=== PATIENT | female | born 1945 | race Caucasian/White ===

== ENCOUNTER 2017-12-02 10:09 | Outpatient (CLI) | payer MEDICARE, OTHER | END 2017-12-02 10:10 | disposition home or self-care (01) | LOC: BICMAMMO 10:09 | PROVIDERS: ATTEND Internal Medicine Geriatric Medicine | DX: Z08 Encounter for follow-up examination after completed treatment for malignant neoplasm (principal); L90.5 Scar conditions and fibrosis of skin; Z98.890 Other specified postprocedural states | CPT/HCPCS: 77066; G0279 ==

== ENCOUNTER 2018-12-06 11:20 | Outpatient (CLI) | payer MEDICARE, OTHER ==
--- NOTE | 2018-12-07 15:33 | MMO ---
Bilateral MAMMO Bilat Screen [facility]. CLINICAL HISTORY: Patient is 73 years old and is seen for screening. The patient has no family history of breast cancer. 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 The patient has a history of right Excisional Biopsy in November, - malignant, left Ultrasound Guided Core Biopsy in August, - malignant and left Lumpectomy in August, - invasive ductal carcinoma. VIEWS: The views performed were: bilateral craniocaudal with tomosynthesis; bilateral mediolateral oblique with tomosynthesis; and right exaggerated craniocaudal. FILMS COMPARED: The present examination has been compared to prior imaging studies performed at [facility] on 08/11/2002, 08/21/2003, 10/07/2004, 07/20/2006, 08/26/2007, 08/31/2008, 11/22/2014, 11/25/2015, 11/26/2016 and 12/02/2017. MAMMOGRAM FINDINGS: There are scattered fibroglandular densities. Finding 1: There are post-surgical scars seen in both breasts. Finding 2: Benign calcifications are noted bilaterally. No suspicious calcifications or masses are seen. IMPRESSION: ALL ABOVE FINDINGS ARE BENIGN. A ROUTINE FOLLOW-UP MAMMOGRAM IN 1 YEAR IS RECOMMENDED. THE RESULTS OF THIS EXAM WERE SENT TO THE PATIENT. ACR BI-RADS Category 2 - Benign finding MAMMOGRAPHY NOTE: 1. A negative mammogram report should not delay a biopsy if a dominant of clinically suspicious mass is present. 2. Approximately 10% to 15% of breast cancers are not detected by mammography. 3. Adenosis and dense breasts may obscure an underlying neoplasm.
== END 2018-12-06 11:21 | disposition home or self-care (01) ==
LOC: BICMAMMO 11:20
PROVIDERS: ATTEND Internal Medicine Hematology & Oncology
DX: Z12.31 Encounter for screening mammogram for malignant neoplasm of breast (principal); Z85.3 Personal history of malignant neoplasm of breast; Z90.11 Acquired absence of right breast and nipple; Z98.890 Other specified postprocedural states
CPT/HCPCS: 77063; 77067

== ENCOUNTER 2019-07-21 13:50 | Outpatient (CLI) | payer MEDICARE, OTHER ==
--- NOTE | 2019-07-21 14:09 | RAD ---
EXAM: 3 views of the left shoulder HISTORY: Shoulder pain after fall 3 days ago COMPARISON: None FINDINGS: There is no evidence of acute fracture or dislocation. No degenerative changes are present. 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 No soft tissue swelling is seen. The visualized thorax is unremarkable. IMPRESSION: No evidence of acute osseous abnormality.
== END 2019-07-21 13:51 | disposition home or self-care (01) ==
LOC: BICRAD 13:50
PROVIDERS: ATTEND Family Medicine
DX: M25.512 Pain in left shoulder (principal)

== ENCOUNTER 2020-04-12 13:41 | Outpatient (CLI) | payer MEDICARE ==
[~2020-04-12 13:41] MED LIST: Magnevist 469MG/ML 20 ML VIAL ONE
--- NOTE | 2020-04-12 16:19 | MRI ---
BRAIN MRI WITH AND WITHOUT CONTRAST: 04/12/20 COMPARISON: None. HISTORY: Tremors. TECHNIQUE: Multiplanar and multisequence MR imaging of the brain is obtained without contrast. FINDINGS: The diffusion weighted imaging demonstrates no evidence for acute infarction. The axial gradient echo imaging demonstrates no evidence for intracranial hemorrhage. There is polypo id mucosal thickening within the maxillary sinus on the left. Arterial flow voids at the axial level of the skull base appear unremarkable on the T2 weighted imagi ng. Multiple subcentimeter foci of increased T2 and FLAIR signal noted within the subcortical deep and pe riventricular white matter of bilateral frontal lobes suggesting small vessel disease. There is diffuse cerebral volume loss with associated prominence of the CSF containing spaces. The po stcontrast imaging demonstrates no abnormal enhancement within the brain parenchyma. IMPRESSION: Chronic findings as detailed above. No acute findings are noted. POS: H
== END 2020-04-12 13:42 | disposition home or self-care (01) ==
LOC: BICMRI 13:41
PROVIDERS: ATTEND Psychiatry & Neurology Neurology
DX: G25.0 Essential tremor (principal); R26.81 Unsteadiness on feet
CPT/HCPCS: 70553; A9579

== ENCOUNTER 2021-06-10 09:58 | Outpatient (CLI) | payer MEDICARE | END 2021-06-10 09:59 | disposition home or self-care (01) | LOC: BICULT 09:58 | PROVIDERS: ATTEND Family Medicine | DX: R10.9 Unspecified abdominal pain (principal); K83.8 Other specified diseases of biliary tract | CPT/HCPCS: 93975 ==

== ENCOUNTER 2021-07-09 13:15 | Outpatient (CLI) | payer MEDICARE | END 2021-07-09 13:16 | disposition home or self-care (01) | LOC: BICMAMMO 13:15 | PROVIDERS: ATTEND Family Medicine | DX: Z12.31 Encounter for screening mammogram for malignant neoplasm of breast (principal); Z90.10 Acquired absence of unspecified breast and nipple; Z85.3 Personal history of malignant neoplasm of breast | CPT/HCPCS: 77063; 77067 ==

== ENCOUNTER 2022-03-16 15:13 | Emergency (ER) | payer MEDICARE | END 2022-03-16 17:27 | disposition home or self-care (01) | LOC: ERS 15:13 | DX: S70.01XA Contusion of right hip, initial encounter (principal); S00.83XA Contusion of other part of head, initial encounter; E11.9 Type 2 diabetes mellitus without complications; I10 Essential (primary) hypertension; E78.2 Mixed hyperlipidemia; Z79.899 Other long term (current) drug therapy; Z79.84 Long term (current) use of oral hypoglycemic drugs; Z79.82 Long term (current) use of aspirin; W18.30XA Fall on same level, unspecified, initial encounter | CPT/HCPCS: 70450; 70486; 72170 ==

== ENCOUNTER 2022-05-01 08:34 | Outpatient (CLI) | payer MEDICARE | END 2022-05-01 08:35 | disposition home or self-care (01) | LOC: ULT 08:34 | PROVIDERS: ATTEND Internal Medicine Gastroenterology | DX: R10.13 Epigastric pain (principal); R19.7 Diarrhea, unspecified; R11.0 Nausea; R07.9 Chest pain, unspecified; K58.0 Irritable bowel syndrome with diarrhea; K58.1 Irritable bowel syndrome with constipation; K76.0 Fatty (change of) liver, not elsewhere classified; K76.89 Other specified diseases of liver; N28.1 Cyst of kidney, acquired; K82.4 Cholesterolosis of gallbladder; D73.89 Other diseases of spleen; Z86.010 Personal history of colon polyps | CPT/HCPCS: 76700 ==

== ENCOUNTER 2022-06-12 10:28 | Outpatient (CLI) | payer MEDICARE | END 2022-06-12 10:29 | disposition home or self-care (01) | LOC: BICRAD 10:28 | PROVIDERS: ATTEND Family Medicine | DX: S93.412A Sprain of calcaneofibular ligament of left ankle, initial encounter (principal); M54.50 Low back pain, unspecified; M47.816 Spondylosis without myelopathy or radiculopathy, lumbar region; M43.16 Spondylolisthesis, lumbar region; M81.0 Age-related osteoporosis without current pathological fracture; I70.202 Unspecified atherosclerosis of native arteries of extremities, left leg; M25.472 Effusion, left ankle; M16.0 Bilateral primary osteoarthritis of hip | CPT/HCPCS: 72100 ==

== ENCOUNTER 2022-07-10 14:23 | Outpatient (CLI) | payer MEDICARE | END 2022-07-10 14:24 | disposition home or self-care (01) | LOC: BICMAMMO 14:23 | PROVIDERS: ATTEND Internal Medicine Hematology & Oncology | DX: Z12.31 Encounter for screening mammogram for malignant neoplasm of breast (principal); Z90.11 Acquired absence of right breast and nipple; Z85.3 Personal history of malignant neoplasm of breast; Z98.890 Other specified postprocedural states | CPT/HCPCS: 77063; 77067 ==

== ENCOUNTER 2022-08-04 06:46 | Inpatient (IN) | payer MEDICARE ==
[2022-08-04 08:13] LABS: #Eosinphils 0.1 thou/uL (0.0-0.7); #Monocytes 0.7 thou/uL (0.11-0.59); #Neutrophils 4.6 thou/uL (1.40-6.50); %Basophils 0.2 % (0.0-1.0); %Lymphocytes 26.9 % (21.0-51.0); %Monocytes 8.9 % (0.0-10.0); Hemoglobin 8.4 g/dL (12.0-16.0); Mean Corpuscular HGB CONC 31.9 g/dL (32.0-36.0); Mean Corpuscular Hemoglobin 25.5 pg (27.0-31.0); Mean Platelet Volume 8.5 fL (7.4-10.4); Platelet Count 233 thou/uL (130-400); RBC Distribution Width 17.7 % (11.5-14.5); Red Blood Cell (RBC) Count 3.31 mill/uL (4.20-5.40); White Blood Cell (WBC) Count 7.4 thou/uL (4.8-10.8)
[2022-08-04 08:21] LABS: Prothrombin Time 13.8 sec (12.0-14.7)
[2022-08-04 08:22] LABS: PTT 29.2 sec (22.9-36.1)
[2022-08-04 08:36] LABS: ALT (SGPT) 14 U/L (8-55); AST (SGOT) 16 U/L (5-34); Albumin 3.8 g/dL (3.4-4.8); Alkaline Phosphatase 121 U/L (40-110); Anion Gap 11 mmol/L (10-20); BUN (Urea Nitrogen) 34 mg/dL (9.8-20.1); Bilirubin, Total 0.3 mg/dL (0.2-1.2); Calc. Creatinine Clearance 0 mL/min (70-130); Calcium 9.2 mg/dL (7.8-10.44); Carbon Dioxide 26 mmol/L (23-31); Chloride 102 mmol/L (98-107); Estimated GFR 39; Globulin 2.9 g/dL (2.4-3.5); Glucose 326 mg/dL (83-110); Potassium 4.3 mmol/L (3.5-5.1); Protein, Total 6.7 g/dL (5.8-8.1); Sodium 135 mmol/L (136-145)
[2022-08-04] MEDS ORDERED: hydrALAZINE 25 MG TAB ONE (08:43)
[2022-08-04] MEDS ORDERED: Acetaminophen 500 MG TAB ONE (08:51)
[2022-08-04] MEDS ORDERED: Hydrochlorothiazide 25 MG TAB PO SCH (09:00)
[2022-08-04] MEDS ORDERED: Losartan 25 MG TAB PO SCH ×2 (09:00→09:30)
[2022-08-04 10:08] LABS: Reticulocyte Count 2.3 % (0.5-1.5)
[2022-08-04 10:25] LABS: Iron 25 ug/dL (50-170); Iron Binding Capacity, Total 374 mcg/dL (265-497)
[2022-08-04 11:31] LABS: Troponin I Less than 0.010 ng/mL (< 0.028)
[2022-08-04] MEDS ORDERED: Dextrose 50% Abboject 50 ML SYRINGE SLOW IVP PRN (12:52)
[2022-08-04] MEDS ORDERED: Ondansetron ODT 4 MG TAB PO PRN (12:52)
[2022-08-04] MEDS ORDERED: Acetaminophen 325 MG TAB PO PRN (12:52)
[2022-08-04] MEDS ORDERED: Dextrose 5% in Water 1,000 ML IV PRN (12:52)
[2022-08-04] MEDS ORDERED: Iron Sucrose Complex 200 MG in Sodium Chloride 0.9% 100 ML IVPB SCH (12:56)
[2022-08-04] MEDS ORDERED: rOPINIRole HCl 0.5 MG TAB PO PRN (12:57)
[2022-08-04] MEDS ORDERED: Sodium Chloride 0.9% 500 ML IV SCH (13:00)
[2022-08-04] MEDS ORDERED: Electrolyte Replacement Protocol 1 EACH FS SCH (13:00)
[2022-08-04] MEDS ORDERED: Sertraline 100 MG TAB PO SCH (13:00)
[2022-08-04 15:23] LABS: Troponin I Less than 0.010 ng/mL (< 0.028)
[2022-08-04] MEDS ORDERED: Metoprolol Tartrate 25 MG TAB PO SCH (15:30)
[2022-08-04] MEDS ORDERED: Cyclobenzaprine 10 MG TAB PO PRN (15:46)
[2022-08-04] MEDS: Iron, Sodium Ferric Gluconate 250 MG in Sodium Chloride 0.9% 250 ML 250 ML IVPB SCH (15:54)
[2022-08-04] MEDS: HumaLOG 300 UNITS/3 ML VIAL SC PRN (18:33)
[2022-08-04] MEDS: hydrALAZINE 25 MG TAB PO SCH (18:38)
[2022-08-04] MEDS: Metoprolol Tartrate 25 MG TAB PO SCH (18:39)
[2022-08-04] MEDS: ALPRAZolam 0.25 MG TAB PO PRN (23:31)
[2022-08-05 03:07] VITALS: BMI 35.6
[2022-08-05 06:11] LABS: #Basophils 0.1 thou/uL (0.0-0.2); #Eosinphils 0.1 thou/uL (0.0-0.7); #Lymphocytes 2.4 thou/uL (1.20-3.40); #Monocytes 0.8 thou/uL (0.11-0.59); #Neutrophils 5.3 thou/uL (1.40-6.50); %Basophils 0.6 % (0.0-1.0); %Eosinophils 1.1 % (0.0-10.0); %Lymphocytes 27.6 % (21.0-51.0); %Monocytes 9.2 % (0.0-10.0); %Neutrophils 61.4 % (42.0-75.0); Hemoglobin 9.1 g/dL (12.0-16.0); Mean Corpuscular HGB CONC 31.3 g/dL (32.0-36.0); Mean Corpuscular Hemoglobin 25.1 pg (27.0-31.0); Mean Corpuscular Volume 80.2 fl (78.0-98.0); Mean Platelet Volume 8.5 fL (7.4-10.4); Platelet Count 265 10x3/uL (130-400); RBC Distribution Width 17.8 % (11.5-14.5); White Blood Cell (WBC) Count 8.6 10x3/uL (4.8-10.8)
[2022-08-05 06:23] LABS: Anion Gap 11 mmol/L (10-20); BUN (Urea Nitrogen) 27 mg/dL (9.8-20.1); Calc. Creatinine Clearance 51 mL/min (70-130); Calcium 9.4 mg/dL (7.8-10.44); Carbon Dioxide 28 mmol/L (23-31); Chloride 101 mmol/L (98-107); Estimated GFR 43; Glucose 252 mg/dL (83-110); Magnesium 1.8 mg/dL (1.6-2.6); Potassium 4.1 mmol/L (3.5-5.1); Sodium 136 mmol/L (136-145)
[2022-08-05] MEDS ORDERED: Magnesium 2 GM/50 ML(in water) 2 GM in Premix Bag 1 BAG IVPB SCH (08:00)
[2022-08-05] MEDS: hydrALAZINE 25 MG TAB PO SCH ×2 (08:42→20:04)
[2022-08-05] MEDS: Losartan/Hydrochlorothiazide 100 mg/25 mg Tablet PO SCH (08:43)
[2022-08-05] MEDS: Sertraline 100 MG TAB PO SCH (08:44)
[2022-08-05] MEDS: Metoprolol Tartrate 25 MG TAB PO SCH ×2 (08:44→20:05)
[2022-08-05] MEDS ORDERED: Propranolol HCl LA 60 MG CAP PO SCH (09:00)
[2022-08-05] MEDS ORDERED: Aspirin 81 mg Enteric Coated Tablet PO SCH (09:00)
[2022-08-05] MEDS ORDERED: Sertraline 100 MG TAB PO SCH (09:00)
[2022-08-05 09:53] LABS: Phosphorus 3.6 mg/dL (2.3-4.7)
[2022-08-05 10:01] LABS: Actual Bicarbonate (HCO3v) 24 mEq/L (22-28); Base Excess 0.5 mEq/L (-2.0 to +3.0); Calcium, Ionized (venous) 1.11 mmol/L (1.16-1.32); Chloride (VBG) 98 mmol/L (98-106); Hemoglobin (Hb) 9.8 g/dL (11.7-16.1); Potassium (VBG) 4.32 mmol/L (3.70-5.30); Sodium 133.2 mmol/L (133-146); pH (venous) 7.46 (7.32-7.43)
[2022-08-05] MEDS: HumaLOG 300 UNITS/3 ML VIAL SC PRN ×3 (11:33→20:09)
[2022-08-05] MEDS: Iron, Sodium Ferric Gluconate 250 MG in Sodium Chloride 0.9% 250 ML 250 ML IVPB SCH (13:55)
[2022-08-05] MEDS: ALPRAZolam 0.25 MG TAB PO PRN (23:33)
[2022-08-06] MEDS ORDERED: Calcium Carbonate 500 MG ChewTAB PO PRN (00:24)
[2022-08-06 05:00] LABS: #Eosinphils 0.1 thou/uL (0.0-0.7); #Lymphocytes 2.3 thou/uL (1.20-3.40); #Monocytes 0.9 thou/uL (0.11-0.59); #Neutrophils 5.5 thou/uL (1.40-6.50); %Eosinophils 1.2 % (0.0-10.0); %Lymphocytes 25.8 % (21.0-51.0); %Monocytes 10.6 % (0.0-10.0); %Neutrophils 62.4 % (42.0-75.0); Hemoglobin 9.2 g/dL (12.0-16.0); Mean Corpuscular HGB CONC 32.2 g/dL (32.0-36.0); Mean Corpuscular Hemoglobin 25.6 pg (27.0-31.0); Mean Corpuscular Volume 79.6 fl (78.0-98.0); Mean Platelet Volume 8.8 fL (7.4-10.4); Platelet Count 258 10x3/uL (130-400); White Blood Cell (WBC) Count 8.8 10x3/uL (4.8-10.8)
[2022-08-06 05:15] LABS: ALT (SGPT) 13 U/L (8-55); AST (SGOT) 13 U/L (5-34); Albumin 3.9 g/dL (3.4-4.8); Alkaline Phosphatase 127 U/L (40-110); Anion Gap 15 mmol/L (10-20); BUN (Urea Nitrogen) 31 mg/dL (9.8-20.1); Bilirubin, Total 0.4 mg/dL (0.2-1.2); Calc. Creatinine Clearance 45 mL/min (70-130); Calcium 9.7 mg/dL (7.8-10.44); Carbon Dioxide 25 mmol/L (23-31); Chloride 97 mmol/L (98-107); Estimated GFR 38; Globulin 3.1 g/dL (2.4-3.5); Glucose 314 mg/dL (83-110); Magnesium 2.1 mg/dL (1.6-2.6); Sodium 133 mmol/L (136-145)
[2022-08-06 05:18] LABS: Iron 281 ug/dL (50-170); Iron Binding Capacity, Total 355 mcg/dL (265-497); Phosphorus 4.3 mg/dL (2.3-4.7)
[2022-08-06] MEDS: hydrALAZINE 25 MG TAB PO SCH ×4 (05:32→21:21)
[2022-08-06] MEDS: Metoprolol Tartrate 25 MG TAB PO SCH ×2 (05:32→21:20)
[2022-08-06] MEDS: HumaLOG 300 UNITS/3 ML VIAL SC PRN ×4 (05:33→21:21)
[2022-08-06] MEDS: Sertraline 100 MG TAB PO SCH (08:55)
[2022-08-06] MEDS: Losartan/Hydrochlorothiazide 100 mg/25 mg Tablet PO SCH (08:55)
[2022-08-06] MEDS ORDERED: NIFEdipine XL 30 MG TAB PO SCH (09:00)
[2022-08-06 10:40] LABS: Bacteria/HPF None Seen HPF (None Seen); Bilirubin Negative (Negative); Blood, Urine Negative (Negative); Clarity Clear (Clear); Glucose, Urine (Dipstick) 300 mg/dL (Negative); Ketone, Urine Negative (Negative); Leukocyte Negative Leu/uL (Negative); Nitrite Negative (Negative); Protein, Urine (Dipstick) 30 mg/dL (Neg-Trace); RBC/HPF 0-3 HPF (0-3); Specific Gravity, Urine 1.013 (1.002-1.036); Squamous Epithelial 0-3 HPF (0-3); Urobilinogen Normal mg/dL (Less than 2); WBC/HPF 0-3 HPF (0-3); pH, Urine 5.5 (5.0-9.0)
[2022-08-06 10:41] LABS: Urine Culture Reflex No No
[2022-08-06] MEDS ORDERED: Epoetin (ESRD) 10,000 UNITS/ML VIAL SC SCH (11:00)
[2022-08-06 11:02] LABS: Creatinine, Urine 43.96 mg/dL (47-110)
[2022-08-06] MEDS ORDERED: Propranolol HCl LA 60 MG CAP PO SCH (13:00)
[2022-08-06] MEDS: rOPINIRole HCl 0.5 MG TAB PO SCH (21:20)
[2022-08-06] MEDS: NIFEdipine XL 30 MG TAB PO SCH (21:21)
[2022-08-06] MEDS: traZODone HCl 50 MG TAB PO PRN (23:59)
[2022-08-07] MEDS: HumaLOG 300 UNITS/3 ML VIAL SC PRN ×3 (05:45→16:30)
[2022-08-07] MEDS: rOPINIRole HCl 0.5 MG TAB PO SCH ×2 (10:14→21:25)
[2022-08-07] MEDS: hydrALAZINE 25 MG TAB PO SCH ×3 (10:15→21:25)
[2022-08-07] MEDS: Sertraline 100 MG TAB PO SCH (10:15)
[2022-08-07] MEDS: Metoprolol Tartrate 25 MG TAB PO SCH ×2 (10:15→21:25)
[2022-08-07 10:16] LABS: Anion Gap 12 mmol/L (10-20); BUN (Urea Nitrogen) 36 mg/dL (9.8-20.1); Calc. Creatinine Clearance 42 mL/min (70-130); Carbon Dioxide 25 mmol/L (23-31); Chloride 97 mmol/L (98-107); Estimated GFR 35; Potassium 4.3 mmol/L (3.5-5.1); Sodium 130 mmol/L (136-145)
[2022-08-07] MEDS: NIFEdipine XL 30 MG TAB PO SCH ×2 (10:16→21:25)
[2022-08-07 10:32] LABS: Glucose 401 mg/dL (83-110)
[2022-08-07] MEDS: glipiZIDE 5 MG TAB PO SCH (10:44)
[2022-08-07] MEDS: Propranolol HCl LA 60 MG CAP PO SCH (10:45)
[2022-08-07] MEDS ORDERED: Dextrose 5% in Water 1,000 ML IV PRN (15:31)
[2022-08-07] MEDS ORDERED: Dextrose 50% Abboject 50 ML SYRINGE SLOW IVP PRN (15:31)
[2022-08-07] MEDS ORDERED: metFORMIN 500 MG TAB PO SCH (17:00)
[2022-08-07] MEDS: traZODone HCl 50 MG TAB PO PRN (21:25)
[2022-08-07] MEDS ORDERED: HumaLOG 300 UNITS/3 ML VIAL SC PRN (21:49)
[2022-08-07] MEDS ORDERED: Sodium Chloride 0.9% 1,000 ML IV SCH (22:15)
[2022-08-08 05:27] LABS: Anion Gap 12 mmol/L (10-20); BUN (Urea Nitrogen) 37 mg/dL (9.8-20.1); Calc. Creatinine Clearance 49 mL/min (70-130); Calcium 9.3 mg/dL (7.8-10.44); Carbon Dioxide 24 mmol/L (23-31); Chloride 100 mmol/L (98-107); Estimated GFR 42; Glucose 264 mg/dL (83-110); Potassium 4.1 mmol/L (3.5-5.1); Sodium 132 mmol/L (136-145)
[2022-08-08] MEDS: HumaLOG 300 UNITS/3 ML VIAL SC PRN ×2 (06:43→11:34)
[2022-08-08] MEDS: glipiZIDE 5 MG TAB PO SCH (09:48)
[2022-08-08] MEDS: NIFEdipine XL 30 MG TAB PO SCH (09:49)
[2022-08-08] MEDS: rOPINIRole HCl 0.5 MG TAB PO SCH (09:49)
[2022-08-08] MEDS: hydrALAZINE 25 MG TAB PO SCH (09:49)
[2022-08-08] MEDS: Sertraline 100 MG TAB PO SCH (09:49)
[2022-08-08] MEDS: Propranolol HCl LA 60 MG CAP PO SCH (09:49)
[2022-08-08] MEDS: Metoprolol Tartrate 25 MG TAB PO SCH (09:49)
[2022-08-08 11:44] VITALS: BP 162/72; TEMP 98.7
== END 2022-08-08 13:10 | DRG 683 ==
LOC: ERS 06:46 → ERHOLD 10:06 → 2SW 14:05 → OBSVTOIN 08-05 18:04
PROVIDERS: ADMIT Hospitalist; ATTEND Hospitalist
DX: N17.9 Acute kidney failure, unspecified (principal); E87.1 Hypo-osmolality and hyponatremia; I16.0 Hypertensive urgency; Z20.822 Contact with and (suspected) exposure to COVID-19; E11.65 Type 2 diabetes mellitus with hyperglycemia; R79.89 Other specified abnormal findings of blood chemistry; E78.5 Hyperlipidemia, unspecified; F41.9 Anxiety disorder, unspecified; F32.A Depression, unspecified; G25.81 Restless legs syndrome; G47.00 Insomnia, unspecified; N18.30 Chronic kidney disease, stage 3 unspecified; E11.22 Type 2 diabetes mellitus with diabetic chronic kidney disease; I12.9 Hypertensive chronic kidney disease with stage 1 through stage 4 chronic kidney disease, or unspecified chronic kidney disease; D63.1 Anemia in chronic kidney disease; E88.09 Other disorders of plasma-protein metabolism, not elsewhere classified; I13.10 Hypertensive heart and chronic kidney disease without heart failure, with stage 1 through stage 4 chronic kidney disease, or unspecified chronic kidney disease; I49.1 Atrial premature depolarization; Z90.89 Acquired absence of other organs; Z86.010 Personal history of colon polyps; Z79.899 Other long term (current) drug therapy; Z79.84 Long term (current) use of oral hypoglycemic drugs
CPT/HCPCS: 36415; 36416; 70450; 71045; 72125; 76770; 80048; 80053; 81001; 82274; 82306; 82533; 82570; 82728; 82805; 83540; 83550; 83735; 83970; 84100; 84156; 84443; 84484; 85025; 85046; 85610; 85730; 93005; 93306; 93976; 96374; 96375; 96376; G0378; J1815; J2916; J3475; J7050; Q4081; U0003; U0005

== ENCOUNTER 2023-03-05 13:55 | Inpatient (IN) | payer MEDICARE, OTHER ==
[2023-03-05 15:14] LABS: Base Excess 2.4 mEq/L (-2.0 to +3.0); Calcium, Ionized (venous) 0.89 mmol/L (1.16-1.32); Chloride (VBG) 104 mmol/L (98-106); Hematocrit-VBG 31 % (36.0-47.0); Hemoglobin (Hb) 10.6 g/dL (11.7-16.1); Potassium (VBG) 3.45 mmol/L (3.70-5.30); Sodium 134.3 mmol/L (133-146); pH (venous) 7.603 (7.32-7.43)
[2023-03-05 15:23] LABS: #Monocytes 0.7 thou/uL (0.11-0.59); #Neutrophils 4.4 thou/uL (1.40-6.50); %Basophils 0.4 % (0.0-1.0); %Eosinophils 0.6 % (0.0-10.0); %Lymphocytes 22.2 % (21.0-51.0); %Monocytes 10.9 % (0.0-10.0); %Neutrophils 65.3 % (42.0-75.0); Hemoglobin 9.3 g/dL (12.0-16.0); Mean Corpuscular HGB CONC 31.6 g/dL (32.0-36.0); Mean Corpuscular Hemoglobin 26.3 pg (27.0-31.0); Mean Corpuscular Volume 83.1 fl (78.0-98.0); Mean Platelet Volume 9.8 fL (7.4-10.4); Platelet Count 244 10x3/uL (130-400); Red Blood Cell (RBC) Count 3.54 mill/uL (4.20-5.40); White Blood Cell (WBC) Count 6.8 10x3/uL (4.8-10.8)
[2023-03-05 15:41] LABS: ALT (SGPT) 12 U/L (8-55); AST (SGOT) 11 U/L (5-34); Albumin 3.2 g/dL (3.4-4.8); Alkaline Phosphatase 118 U/L (40-110); Anion Gap 13 mmol/L (10-20); BUN (Urea Nitrogen) 29 mg/dL (9.8-20.1); Bilirubin, Total 0.2 mg/dL (0.2-1.2); Calc. Creatinine Clearance 0 mL/min (70-130); Calcium 8.6 mg/dL (7.8-10.44); Carbon Dioxide 26 mmol/L (23-31); Chloride 103 mmol/L (98-107); Estimated GFR 42; Globulin 2.9 g/dL (2.4-3.5); Glucose 340 mg/dL (83-110); Potassium 3.5 mmol/L (3.5-5.1); Protein, Total 6.1 g/dL (5.8-8.1); Sodium 138 mmol/L (136-145)
[2023-03-05 16:56] LABS: Bacteria/HPF None Seen HPF (None Seen); Bilirubin Negative (Negative); Blood, Urine Negative (Negative); CAUTI Indications for Culture Dysuria,urgency,freq; Clarity Clear (Clear); Glucose, Urine (Dipstick) Greater than 1000 mg/dL (Negative); Ketone, Urine Negative (Negative); Leukocyte Negative Leu/uL (Negative); Nitrite Negative (Negative); Protein, Urine (Dipstick) 300 mg/dL (Neg-Trace); RBC/HPF None Seen HPF (0-3); Specific Gravity, Urine 1.017 (1.002-1.036); Urobilinogen Normal mg/dL (Less than 2); WBC/HPF 0-3 HPF (0-3); pH, Urine 6.5 (5.0-9.0)
[2023-03-05 16:59] LABS: Urine Culture Reflex No No
[2023-03-05 17:06] LABS: CKMB 2.3 ng/mL (0-6.6)
[2023-03-05] MEDS ORDERED: Aspirin 325 MG TAB ONE (17:29)
[2023-03-05] MEDS ORDERED: hydrALAZINE 25 MG TAB ONE (18:02)
[2023-03-05] MEDS ORDERED: Nitroglycerin 0.4 MG TAB (25 Tab Bottle) SL PRN (18:16)
[2023-03-05] MEDS ORDERED: Senokot S 8.6-50 MG TAB PO PRN (18:16)
[2023-03-05] MEDS ORDERED: Ondansetron ODT 4 MG TAB PO PRN (18:16)
[2023-03-05] MEDS ORDERED: Ondansetron PF 4 MG/2 ML Vial IVP PRN (18:16)
[2023-03-05] MEDS ORDERED: Bisacodyl 5 MG TAB PO PRN (18:16)
[2023-03-05] MEDS ORDERED: Acetaminophen 325 MG TAB PO PRN (18:16)
[2023-03-05] MEDS ORDERED: Dextrose 5% in Water 1,000 ML IV PRN (18:22)
[2023-03-05] MEDS ORDERED: Glucagon 1 MG/ML KIT IM PRN (18:22)
[2023-03-05] MEDS ORDERED: Dextrose 50% Abboject 50 ML SYRINGE SLOW IVP PRN (18:22)
[2023-03-05] MEDS ORDERED: Sodium Chloride 0.9% 1,000 ML IV SCH (18:30)
[2023-03-05] MEDS ORDERED: traMADol HCl 50 MG TAB PO SCH (19:30)
[2023-03-05 19:59] VITALS: BMI 35.4
[2023-03-05 20:14] LABS: Hemoglobin A1c 10.1 % (4.0-6.0)
[2023-03-05 20:33] LABS: Troponin I Less than 0.010 ng/mL (< 0.028)
[2023-03-05] MEDS: Heparin 5,000 UNITS/ML VIAL SC SCH (21:00)
[2023-03-05] MEDS ORDERED: Metoprolol Tartrate 25 MG TAB PO SCH (21:00)
[2023-03-05] MEDS: NIFEdipine XL 30 MG TAB PO SCH (21:00)
[2023-03-05] MEDS: hydrALAZINE 25 MG TAB PO SCH (21:00)
[2023-03-05] MEDS: HumaLOG 300 UNITS/3 ML VIAL SC PRN (21:13)
[2023-03-06 00:33] LABS: Troponin I Less than 0.010 ng/mL (< 0.028)
[2023-03-06] MEDS: traZODone HCl 50 MG TAB PO PRN ×2 (03:28→20:52)
[2023-03-06 05:13] LABS: #Eosinphils 0.1 thou/uL (0.0-0.7); #Monocytes 0.8 thou/uL (0.11-0.59); #Neutrophils 3.4 thou/uL (1.40-6.50); %Basophils 0.3 % (0.0-1.0); %Eosinophils 1.7 % (0.0-10.0); %Lymphocytes 28.3 % (21.0-51.0); %Monocytes 12.7 % (0.0-10.0); %Neutrophils 56.5 % (42.0-75.0); Hemoglobin 8.6 g/dL (12.0-16.0); Mean Corpuscular HGB CONC 30.8 g/dL (32.0-36.0); Mean Corpuscular Hemoglobin 25.8 pg (27.0-31.0); Mean Corpuscular Volume 83.8 fl (78.0-98.0); Mean Platelet Volume 10.1 fL (7.4-10.4); Platelet Count 207 10x3/uL (130-400); RBC Distribution Width 16.9 % (11.5-14.5); Red Blood Cell (RBC) Count 3.33 mill/uL (4.20-5.40)
[2023-03-06 05:38] LABS: Anion Gap 9 mmol/L (10-20); BUN (Urea Nitrogen) 22 mg/dL (9.8-20.1); Calc. Creatinine Clearance 65 mL/min (70-130); Calcium 8.2 mg/dL (7.8-10.44); Carbon Dioxide 26 mmol/L (23-31); Cardiac Risk 5.3 (Less than 4.5); Chloride 110 mmol/L (98-107); Cholesterol 174 mg/dl (< 200 Desired); Estimated GFR 58; Glucose 217 mg/dL (83-110); HDL Cholesterol 33 mg/dL (>60 Neg Risk); LDL Cholesterol, Calculated 88 mg/dL; Potassium 3.1 mmol/L (3.5-5.1); Sodium 142 mmol/L (136-145); Triglycerides 266 mg/dL (Less than 150)
[2023-03-06] MEDS: HumaLOG 300 UNITS/3 ML VIAL SC PRN ×3 (06:09→20:53)
[2023-03-06] MEDS: Aspirin Chewable 81 MG TAB PO SCH (08:39)
[2023-03-06] MEDS: NIFEdipine XL 30 MG TAB PO SCH ×2 (08:39→20:52)
[2023-03-06] MEDS: Sertraline 100 MG TAB PO SCH (08:43)
[2023-03-06] MEDS: hydrALAZINE 25 MG TAB PO SCH ×2 (08:43→20:52)
[2023-03-06] MEDS: Heparin 5,000 UNITS/ML VIAL SC SCH ×3 (08:44→20:53)
[2023-03-06] MEDS ORDERED: ADENOSINE 60 MG/20 ML SDV ONE (13:25)
[2023-03-06] MEDS ORDERED: Propranolol HCl LA 60 MG CAP PO SCH (23:45)
[2023-03-07] MEDS: HumaLOG 300 UNITS/3 ML VIAL SC PRN ×3 (05:58→21:27)
[2023-03-07] MEDS ORDERED: Insulin Glargine 30 UNITS/0.3 ML VIAL SC SCH (09:00)
[2023-03-07 09:07] LABS: Anion Gap 10 mmol/L (10-20); BUN (Urea Nitrogen) 17 mg/dL (9.8-20.1); Calc. Creatinine Clearance 60 mL/min (70-130); Calcium 8.5 mg/dL (7.8-10.44); Carbon Dioxide 25 mmol/L (23-31); Chloride 104 mmol/L (98-107); Estimated GFR 53; Glucose 267 mg/dL (83-110); Potassium 3.2 mmol/L (3.5-5.1); Sodium 136 mmol/L (136-145)
[2023-03-07] MEDS: Aspirin Chewable 81 MG TAB PO SCH (09:49)
[2023-03-07] MEDS: Heparin 5,000 UNITS/ML VIAL SC SCH ×3 (09:49→20:30)
[2023-03-07] MEDS: hydrALAZINE 25 MG TAB PO SCH ×2 (09:50→20:29)
[2023-03-07] MEDS: NIFEdipine XL 30 MG TAB PO SCH ×2 (09:50→20:30)
[2023-03-07] MEDS: Sertraline 100 MG TAB PO SCH (09:50)
[2023-03-07] MEDS ORDERED: Potassium Chloride 20 MEQ TAB PO SCH (16:30)
[2023-03-07] MEDS: HumaLOG 300 UNITS/3 ML VIAL SC SCH (17:35)
[2023-03-07] MEDS ORDERED: Losartan 25 MG TAB PO SCH (18:00)
[2023-03-07] MEDS: Atorvastatin Calcium 40 MG TAB PO SCH (20:29)
[2023-03-08] MEDS: ALPRAZolam 0.25 MG TAB PO PRN (01:56)
[2023-03-08 05:07] LABS: #Eosinphils 0.2 thou/uL (0.0-0.7); #Monocytes 0.8 thou/uL (0.11-0.59); #Neutrophils 3.7 thou/uL (1.40-6.50); %Basophils 0.5 % (0.0-1.0); %Eosinophils 2.3 % (0.0-10.0); %Lymphocytes 34.6 % (21.0-51.0); %Monocytes 10.7 % (0.0-10.0); %Neutrophils 51.1 % (42.0-75.0); Hemoglobin 9.3 g/dL (12.0-16.0); Mean Corpuscular HGB CONC 31.8 g/dL (32.0-36.0); Mean Corpuscular Hemoglobin 25.5 pg (27.0-31.0); Mean Corpuscular Volume 80.2 fl (78.0-98.0); Mean Platelet Volume 9.8 fL (7.4-10.4); Platelet Count 236 10x3/uL (130-400); RBC Distribution Width 16.6 % (11.5-14.5); Red Blood Cell (RBC) Count 3.64 mill/uL (4.20-5.40); White Blood Cell (WBC) Count 7.3 10x3/uL (4.8-10.8)
[2023-03-08 05:31] LABS: Anion Gap 11 mmol/L (10-20); BUN (Urea Nitrogen) 19 mg/dL (9.8-20.1); Calc. Creatinine Clearance 57 mL/min (70-130); Calcium 8.8 mg/dL (7.8-10.44); Carbon Dioxide 21 mmol/L (23-31); Chloride 108 mmol/L (98-107); Estimated GFR 50; Glucose 283 mg/dL (83-110); Potassium 3.7 mmol/L (3.5-5.1); Sodium 136 mmol/L (136-145)
[2023-03-08] MEDS: HumaLOG 300 UNITS/3 ML VIAL SC SCH ×3 (07:56→16:44)
[2023-03-08] MEDS: Aspirin Chewable 81 MG TAB PO SCH (09:21)
[2023-03-08] MEDS: Sertraline 100 MG TAB PO SCH (09:22)
[2023-03-08] MEDS: NIFEdipine XL 30 MG TAB PO SCH ×2 (09:22→20:42)
[2023-03-08] MEDS: hydrALAZINE 25 MG TAB PO SCH ×2 (09:22→20:42)
[2023-03-08] MEDS: Losartan 25 MG TAB PO SCH (09:22)
[2023-03-08] MEDS: Heparin 5,000 UNITS/ML VIAL SC SCH ×3 (09:23→20:42)
[2023-03-08] MEDS: HumaLOG 300 UNITS/3 ML VIAL SC PRN ×2 (18:01→22:18)
[2023-03-08] MEDS: Atorvastatin Calcium 40 MG TAB PO SCH (20:42)
[2023-03-09] MEDS: traMADol HCl 50 MG TAB PO PRN (01:05)
[2023-03-09 05:27] LABS: #Eosinphils 0.1 thou/uL (0.0-0.7); #Monocytes 0.9 thou/uL (0.11-0.59); #Neutrophils 5.9 thou/uL (1.40-6.50); %Basophils 0.5 % (0.0-1.0); %Lymphocytes 19.3 % (21.0-51.0); %Monocytes 9.9 % (0.0-10.0); %Neutrophils 68.1 % (42.0-75.0); Hemoglobin 8.6 g/dL (12.0-16.0); Mean Corpuscular Hemoglobin 25.7 pg (27.0-31.0); Mean Corpuscular Volume 82.7 fl (78.0-98.0); Mean Platelet Volume 9.7 fL (7.4-10.4); Platelet Count 213 10x3/uL (130-400); RBC Distribution Width 16.8 % (11.5-14.5); Red Blood Cell (RBC) Count 3.35 mill/uL (4.20-5.40); White Blood Cell (WBC) Count 8.7 10x3/uL (4.8-10.8)
[2023-03-09 05:52] LABS: Anion Gap 9 mmol/L (10-20); BUN (Urea Nitrogen) 24 mg/dL (9.8-20.1); Calc. Creatinine Clearance 55 mL/min (70-130); Calcium 8.7 mg/dL (7.8-10.44); Carbon Dioxide 27 mmol/L (23-31); Chloride 99 mmol/L (98-107); Estimated GFR 47; Glucose 358 mg/dL (83-110); Potassium 3.8 mmol/L (3.5-5.1); Sodium 131 mmol/L (136-145)
[2023-03-09] MEDS: HumaLOG 300 UNITS/3 ML VIAL SC PRN ×5 (06:04→21:33)
[2023-03-09] MEDS ORDERED: Sodium Chloride 0.9% 1,000 ML IV SCH (08:45)
[2023-03-09] MEDS ORDERED: HumaLOG 300 UNITS/3 ML VIAL SC SCH (09:00)
[2023-03-09] MEDS ORDERED: Insulin Glargine 30 UNITS/0.3 ML VIAL SC SCH ×2 (09:00)
[2023-03-09] MEDS: HumaLOG 300 UNITS/3 ML VIAL SC SCH ×3 (09:09→16:44)
[2023-03-09] MEDS: Aspirin Chewable 81 MG TAB PO SCH (09:22)
[2023-03-09] MEDS: hydrALAZINE 25 MG TAB PO SCH ×2 (09:22→20:48)
[2023-03-09] MEDS: NIFEdipine XL 30 MG TAB PO SCH ×2 (09:22→20:48)
[2023-03-09] MEDS: Sertraline 100 MG TAB PO SCH (09:22)
[2023-03-09] MEDS: Losartan 25 MG TAB PO SCH (09:23)
[2023-03-09] MEDS: Heparin 5,000 UNITS/ML VIAL SC SCH ×3 (09:26→20:48)
[2023-03-09] MEDS: Atorvastatin Calcium 40 MG TAB PO SCH (20:48)
[2023-03-09] MEDS: ALPRAZolam 0.25 MG TAB PO PRN (23:45)
[2023-03-10 05:14] LABS: #Eosinphils 0.1 thou/uL (0.0-0.7); #Monocytes 0.9 thou/uL (0.11-0.59); #Neutrophils 4.6 thou/uL (1.40-6.50); %Basophils 0.2 % (0.0-1.0); %Eosinophils 1.2 % (0.0-10.0); %Monocytes 11.5 % (0.0-10.0); %Neutrophils 56.4 % (42.0-75.0); Hemoglobin 8.1 g/dL (12.0-16.0); Mean Corpuscular HGB CONC 32.4 g/dL (32.0-36.0); Mean Corpuscular Hemoglobin 26.2 pg (27.0-31.0); Mean Corpuscular Volume 80.9 fl (78.0-98.0); Mean Platelet Volume 9.7 fL (7.4-10.4); Platelet Count 205 10x3/uL (130-400); RBC Distribution Width 16.9 % (11.5-14.5); Red Blood Cell (RBC) Count 3.09 mill/uL (4.20-5.40); White Blood Cell (WBC) Count 8.1 10x3/uL (4.8-10.8)
[2023-03-10 05:36] LABS: Anion Gap 13 mmol/L (10-20); BUN (Urea Nitrogen) 31 mg/dL (9.8-20.1); Calc. Creatinine Clearance 56 mL/min (70-130); Calcium 8.4 mg/dL (7.8-10.44); Carbon Dioxide 24 mmol/L (23-31); Chloride 101 mmol/L (98-107); Estimated GFR 49; Glucose 286 mg/dL (83-110); Potassium 3.8 mmol/L (3.5-5.1); Sodium 134 mmol/L (136-145)
[2023-03-10] MEDS: HumaLOG 300 UNITS/3 ML VIAL SC PRN ×3 (05:58→21:29)
[2023-03-10] MEDS ORDERED: Insulin Glargine 30 UNITS/0.3 ML VIAL SC SCH (09:00)
[2023-03-10] MEDS ORDERED: NIFEdipine XL 60 MG TAB PO SCH (09:00)
[2023-03-10] MEDS: HumaLOG 300 UNITS/3 ML VIAL SC SCH ×3 (09:16→17:21)
[2023-03-10] MEDS: Heparin 5,000 UNITS/ML VIAL SC SCH ×3 (09:16→20:13)
[2023-03-10] MEDS: Aspirin Chewable 81 MG TAB PO SCH (09:16)
[2023-03-10] MEDS: hydrALAZINE 25 MG TAB PO SCH ×2 (09:16→20:13)
[2023-03-10] MEDS: Sertraline 100 MG TAB PO SCH (09:17)
[2023-03-10] MEDS: Losartan 25 MG TAB PO SCH (09:17)
[2023-03-10] MEDS: ALPRAZolam 0.25 MG TAB PO PRN (17:28)
[2023-03-10 19:53] VITALS: TEMP 98.5
[2023-03-10] MEDS: Atorvastatin Calcium 40 MG TAB PO SCH (20:24)
[2023-03-10] MEDS ORDERED: NIFEdipine XL 30 MG TAB PO SCH (21:00)
[2023-03-11] MEDS: traMADol HCl 50 MG TAB PO PRN (01:24)
[2023-03-11 05:02] LABS: #Eosinphils 0.2 thou/uL (0.0-0.7); #Neutrophils 4.5 thou/uL (1.40-6.50); %Basophils 0.4 % (0.0-1.0); %Eosinophils 1.9 % (0.0-10.0); %Lymphocytes 27.1 % (21.0-51.0); %Neutrophils 56.3 % (42.0-75.0); Hemoglobin 7.7 g/dL (12.0-16.0); Mean Corpuscular HGB CONC 31.4 g/dL (32.0-36.0); Mean Corpuscular Hemoglobin 25.9 pg (27.0-31.0); Mean Corpuscular Volume 82.5 fl (78.0-98.0); Mean Platelet Volume 10.2 fL (7.4-10.4); Platelet Count 217 10x3/uL (130-400); RBC Distribution Width 17.2 % (11.5-14.5); Red Blood Cell (RBC) Count 2.97 mill/uL (4.20-5.40)
[2023-03-11 05:22] LABS: Anion Gap 10 mmol/L (10-20); BUN (Urea Nitrogen) 29 mg/dL (9.8-20.1); Calc. Creatinine Clearance 47 mL/min (70-130); Calcium 8.7 mg/dL (7.8-10.44); Carbon Dioxide 25 mmol/L (23-31); Chloride 100 mmol/L (98-107); Estimated GFR 40; Glucose 242 mg/dL (83-110); Potassium 4.1 mmol/L (3.5-5.1); Sodium 131 mmol/L (136-145)
[2023-03-11] MEDS: HumaLOG 300 UNITS/3 ML VIAL SC PRN (05:42)
[2023-03-11] MEDS ORDERED: Insulin Glargine 30 UNITS/0.3 ML VIAL SC SCH (09:00)
[2023-03-11] MEDS ORDERED: NIFEdipine XL 60 MG TAB PO SCH (09:00)
[2023-03-11 09:02] VITALS: BP 176/75
[2023-03-11] MEDS: hydrALAZINE 25 MG TAB PO SCH (09:12)
[2023-03-11] MEDS: Heparin 5,000 UNITS/ML VIAL SC SCH (09:12)
[2023-03-11] MEDS: HumaLOG 300 UNITS/3 ML VIAL SC SCH (09:13)
[2023-03-11] MEDS: Losartan 25 MG TAB PO SCH (09:13)
[2023-03-11] MEDS: Aspirin Chewable 81 MG TAB PO SCH (09:13)
[2023-03-11] MEDS: Sertraline 100 MG TAB PO SCH (09:13)
[2023-03-12] MEDS ORDERED: Insulin Glargine 30 UNITS/0.3 ML VIAL SC SCH (09:00)
== END 2023-03-11 11:35 | DRG 638 ==
LOC: ERS 13:55 → 2SW 18:00 → OBSVTOIN 03-07 16:33
PROVIDERS: ADMIT Internal Medicine; ATTEND Family Medicine
DX: E11.65 Type 2 diabetes mellitus with hyperglycemia (principal); I24.8 Other forms of acute ischemic heart disease; I16.0 Hypertensive urgency; E11.22 Type 2 diabetes mellitus with diabetic chronic kidney disease; I12.9 Hypertensive chronic kidney disease with stage 1 through stage 4 chronic kidney disease, or unspecified chronic kidney disease; E78.5 Hyperlipidemia, unspecified; F41.9 Anxiety disorder, unspecified; N18.30 Chronic kidney disease, stage 3 unspecified; G25.81 Restless legs syndrome; D63.1 Anemia in chronic kidney disease; F32.A Depression, unspecified; Z79.84 Long term (current) use of oral hypoglycemic drugs; Z79.4 Long term (current) use of insulin; Z79.899 Other long term (current) drug therapy; Z88.5 Allergy status to narcotic agent; Z98.890 Other specified postprocedural states; Z90.89 Acquired absence of other organs; Z91.81 History of falling
CPT/HCPCS: 36415; 36416; 71045; 78452; 80048; 80053; 80061; 81001; 82010; 82553; 82805; 83036; 83880; 84443; 84484; 85025; 86850; 86900; 86901; 93005; 93017; 94760; 96360; 96361; 96372; A9500; G0378; J0153; J1644; J1815; J7050

== ENCOUNTER 2023-03-29 15:25 | Inpatient (IN) | payer MEDICARE, OTHER ==
[2023-03-29 16:10] LABS: #Eosinphils 0.1 thou/uL (0.0-0.7); #Monocytes 1.1 thou/uL (0.11-0.59); #Neutrophils 6.7 thou/uL (1.40-6.50); %Basophils 0.3 % (0.0-1.0); %Eosinophils 0.8 % (0.0-10.0); %Monocytes 10.1 % (0.0-10.0); %Neutrophils 62.4 % (42.0-75.0); Hemoglobin 5.8 g/dL (12.0-16.0); Mean Corpuscular HGB CONC 29.6 g/dL (32.0-36.0); Mean Corpuscular Hemoglobin 24.9 pg (27.0-31.0); Mean Corpuscular Volume 84.1 fl (78.0-98.0); Mean Platelet Volume 10.1 fL (7.4-10.4); Platelet Count 347 10x3/uL (130-400); RBC Distribution Width 18.9 % (11.5-14.5); Red Blood Cell (RBC) Count 2.33 mill/uL (4.20-5.40); White Blood Cell (WBC) Count 10.7 10x3/uL (4.8-10.8)
[2023-03-29 16:30] LABS: INR-International Normal Ratio 1.2; PTT 27.7 sec (22.9-36.1)
[2023-03-29] MEDS ORDERED: Pantoprazole 40 MG VIAL ONE (16:34)
[2023-03-29 16:40] LABS: ALT (SGPT) 15 U/L (8-55); AST (SGOT) 19 U/L (5-34); Albumin 3.5 g/dL (3.4-4.8); Alkaline Phosphatase 132 U/L (40-110); Anion Gap 13 mmol/L (10-20); BUN (Urea Nitrogen) 45 mg/dL (9.8-20.1); Bilirubin, Total Less than 0.2 mg/dL (0.2-1.2); Calc. Creatinine Clearance 0 mL/min (70-130); Calcium 8.7 mg/dL (7.8-10.44); Carbon Dioxide 22 mmol/L (23-31); Chloride 109 mmol/L (98-107); Estimated GFR 32; Globulin 2.8 g/dL (2.4-3.5); Glucose 107 mg/dL (83-110); Potassium 3.6 mmol/L (3.5-5.1); Protein, Total 6.3 g/dL (5.8-8.1); Sodium 140 mmol/L (136-145)
[2023-03-29] MEDS ORDERED: Pantoprazole 80 MG, Admixture Fee 1 EACH in Sodium Chloride 0.9% 100 ML IVPB SCH (16:45)
[2023-03-29 18:20] LABS: CKMB 1.7 ng/mL (0-6.6)
[2023-03-29] MEDS ORDERED: Cyclobenzaprine 10 MG TAB ONE (18:22)
[2023-03-29] MEDS ORDERED: HumaLOG 300 UNITS/3 ML VIAL SC PRN (19:11)
[2023-03-29] MEDS ORDERED: Acetaminophen 325 MG TAB PO PRN (19:11)
[2023-03-29] MEDS ORDERED: Ondansetron PF 4 MG/2 ML Vial IVP PRN (19:11)
[2023-03-29] MEDS ORDERED: Ondansetron ODT 4 MG TAB PO PRN (19:11)
[2023-03-29] MEDS ORDERED: Dextrose 50% Abboject 50 ML SYRINGE SLOW IVP PRN (19:11)
[2023-03-29] MEDS ORDERED: Dextrose 5% in Water 1,000 ML IV PRN (19:11)
[2023-03-29] MEDS ORDERED: Glucagon 1 MG/ML KIT IM PRN (19:11)
[2023-03-29 20:00] VITALS: BMI 35.5
[2023-03-29] MEDS ORDERED: Bisacodyl 5 MG TAB PO PRN (21:45)
[2023-03-29] MEDS ORDERED: traMADol HCl 50 MG TAB PO PRN (21:45)
[2023-03-29] MEDS ORDERED: NIFEdipine XL 60 MG TAB PO SCH (22:00)
[2023-03-29] MEDS ORDERED: Atorvastatin Calcium 40 MG TAB PO SCH (22:00)
[2023-03-29 22:24] LABS: Hemoglobin 7.8 g/dL (12.0-16.0)
[2023-03-29] MEDS: Loratadine 10 MG TAB PO SCH (22:48)
[2023-03-29 22:51] LABS: Troponin I 0.152 ng/mL (< 0.028)
[2023-03-29] MEDS ORDERED: Cyclobenzaprine 10 MG TAB PO SCH (23:00)
[2023-03-30 02:15] LABS: #Eosinphils 0.1 thou/uL (0.0-0.7); #Monocytes 1.1 thou/uL (0.11-0.59); #Neutrophils 8.2 thou/uL (1.40-6.50); %Basophils 0.3 % (0.0-1.0); %Eosinophils 0.8 % (0.0-10.0); %Lymphocytes 18.9 % (21.0-51.0); %Monocytes 9.1 % (0.0-10.0); %Neutrophils 69.6 % (42.0-75.0); Hemoglobin 7.9 g/dL (12.0-16.0); Mean Corpuscular HGB CONC 29.8 g/dL (32.0-36.0); Mean Corpuscular Hemoglobin 25.5 pg (27.0-31.0); Mean Corpuscular Volume 85.5 fl (78.0-98.0); Mean Platelet Volume 10.2 fL (7.4-10.4); Platelet Count 306 10x3/uL (130-400); RBC Distribution Width 18.6 % (11.5-14.5); White Blood Cell (WBC) Count 11.8 10x3/uL (4.8-10.8)
[2023-03-30 02:42] LABS: Troponin I 0.111 ng/mL (< 0.028)
[2023-03-30 02:57] LABS: Anion Gap 16 mmol/L (10-20); BUN (Urea Nitrogen) 43 mg/dL (9.8-20.1); Calc. Creatinine Clearance 31 mL/min (70-130); Calcium 8.4 mg/dL (7.8-10.44); Carbon Dioxide 18 mmol/L (23-31); Chloride 110 mmol/L (98-107); Estimated GFR 24; Glucose 243 mg/dL (83-110); Potassium 4.2 mmol/L (3.5-5.1); Sodium 140 mmol/L (136-145)
[2023-03-30] MEDS ORDERED: Lactated Ringer's 1,000 ML IV SCH (03:45)
[2023-03-30] MEDS ORDERED: ALPRAZolam 0.25 MG TAB PO SCH (04:15)
[2023-03-30 05:23] LABS: Actual Bicarbonate (HCO3a) 19.1 mEq/L (22-28); Base Excess (BEa) -4.5 mEq/L (-2.0 to +3.0); Calcium, Ionized (arterial) 1.11 mmol/L (1.12-1.30); Carboxyhemoglobin (COHb) 1.3 gm% (0.0-3.0); Hematocrit-ABG 24 % (36.0-47.0); Hemoglobin (Hb) 8.1 g/dL (12.0-16.0); O2 Tension (PaO2), arterial 67.8 mmHg (> 70.0); Potassium - ABG Lab 4.19 mmol/L (3.70-5.30); pH, Arterial 7.436 (7.35-7.45)
[2023-03-30 05:27] LABS: Puncture Site RRA
[2023-03-30] MEDS ORDERED: Furosemide 40 MG/4 ML VIAL SLOW IVP SCH ×2 (06:00→14:00)
[2023-03-30] MEDS: hydrALAZINE 25 MG TAB PO SCH ×2 (08:26→17:21)
[2023-03-30] MEDS: Sertraline 100 MG TAB PO SCH (08:26)
[2023-03-30] MEDS: NIFEdipine XL 60 MG TAB PO SCH ×2 (08:26→17:21)
[2023-03-30] MEDS: Allopurinol 100 MG TAB PO SCH (08:26)
[2023-03-30] MEDS: guaiFENesin/DM ER PO SCH ×2 (08:26→20:37)
[2023-03-30] MEDS: HumaLOG 300 UNITS/3 ML VIAL SC SCH ×3 (08:28→17:16)
[2023-03-30] MEDS ORDERED: Insulin Glargine 30 UNITS/0.3 ML VIAL SC SCH ×3 (09:00→10:45)
[2023-03-30] MEDS ORDERED: Pantoprazole 40 MG VIAL IVP SCH (10:15)
[2023-03-30] MEDS ORDERED: Ferrous Gluconate 324 MG TAB PO SCH (10:45)
[2023-03-30] MEDS: Propranolol HCl LA 60 MG CAP PO SCH (10:52)
[2023-03-30 11:31] LABS: Ferritin 50.23 ng/mL (10-291)
[2023-03-30 11:37] LABS: ALT (SGPT) 17 U/L (8-55); AST (SGOT) 17 U/L (5-34); Albumin 3.6 g/dL (3.4-4.8); Alkaline Phosphatase 133 U/L (40-110); Bilirubin, Direct 0.3 mg/dL (0.1-0.3); Bilirubin, Total 0.5 mg/dL (0.2-1.2); Iron 75 ug/dL (50-170); Iron Binding Capacity, Total 388 mcg/dL (265-497); Protein, Total 6.4 g/dL (5.8-8.1)
[2023-03-30 15:55] LABS: Anion Gap 16 mmol/L (10-20); BUN (Urea Nitrogen) 42 mg/dL (9.8-20.1); Calc. Creatinine Clearance 36 mL/min (70-130); Calcium 8.8 mg/dL (7.8-10.44); Carbon Dioxide 20 mmol/L (23-31); Chloride 106 mmol/L (98-107); Estimated GFR 29; Glucose 160 mg/dL (83-110); Potassium 3.6 mmol/L (3.5-5.1); Sodium 138 mmol/L (136-145)
[2023-03-30] MEDS: Gabapentin 300 MG CAP PO SCH (20:37)
[2023-03-30] MEDS: Atorvastatin Calcium 40 MG TAB PO SCH (20:37)
[2023-03-30] MEDS: Pantoprazole 40 MG VIAL IVP SCH (20:37)
[2023-03-30] MEDS: Loratadine 10 MG TAB PO SCH (20:37)
[2023-03-30] MEDS ORDERED: Cyclobenzaprine 10 MG TAB PO SCH (21:00)
[2023-03-31 04:13] LABS: #Eosinphils 0.2 thou/uL (0.0-0.7); #Monocytes 1.3 thou/uL (0.11-0.59); %Basophils 0.4 % (0.0-1.0); %Eosinophils 2.1 % (0.0-10.0); %Lymphocytes 24.4 % (21.0-51.0); %Monocytes 12.6 % (0.0-10.0); %Neutrophils 59.3 % (42.0-75.0); Hemoglobin 6.9 g/dL (12.0-16.0); Mean Corpuscular HGB CONC 29.1 g/dL (32.0-36.0); Mean Corpuscular Hemoglobin 24.6 pg (27.0-31.0); Mean Corpuscular Volume 84.3 fl (78.0-98.0); Platelet Count 245 10x3/uL (130-400); RBC Distribution Width 18.3 % (11.5-14.5); Red Blood Cell (RBC) Count 2.81 mill/uL (4.20-5.40); White Blood Cell (WBC) Count 10.2 10x3/uL (4.8-10.8)
[2023-03-31 04:39] LABS: Anion Gap 14 mmol/L (10-20); BUN (Urea Nitrogen) 39 mg/dL (9.8-20.1); Calc. Creatinine Clearance 41 mL/min (70-130); Calcium 8.5 mg/dL (7.8-10.44); Carbon Dioxide 23 mmol/L (23-31); Chloride 105 mmol/L (98-107); Estimated GFR 34; Glucose 66 mg/dL (83-110); Potassium 3.4 mmol/L (3.5-5.1); Sodium 139 mmol/L (136-145)
[2023-03-31] MEDS ORDERED: Ferrous Gluconate 324 MG TAB PO SCH (08:00)
[2023-03-31] MEDS: HumaLOG 300 UNITS/3 ML VIAL SC SCH (08:21)
[2023-03-31] MEDS: guaiFENesin/DM ER PO SCH ×2 (08:22→20:05)
[2023-03-31] MEDS: Sertraline 100 MG TAB PO SCH (08:22)
[2023-03-31] MEDS: Gabapentin 300 MG CAP PO SCH (08:23)
[2023-03-31] MEDS: Allopurinol 100 MG TAB PO SCH (08:23)
[2023-03-31] MEDS: NIFEdipine XL 60 MG TAB PO SCH ×2 (08:23→20:04)
[2023-03-31] MEDS: hydrALAZINE 25 MG TAB PO SCH ×2 (08:23→20:04)
[2023-03-31] MEDS: Ferrous Gluconate 324 MG TAB PO SCH (08:23)
[2023-03-31] MEDS: Pantoprazole 40 MG VIAL IVP SCH (08:24)
[2023-03-31] MEDS ORDERED: Insulin Glargine 30 UNITS/0.3 ML VIAL SC SCH ×2 (09:00→19:00)
[2023-03-31] MEDS: Propranolol HCl LA 60 MG CAP PO SCH (09:36)
[2023-03-31 13:54] LABS: Hemoglobin 8.8 g/dL (12.0-16.0)
[2023-03-31] MEDS: Sodium Chloride 0.65% Nasal 44 ML BOT EA NARE SCH ×2 (15:10→20:06)
[2023-03-31] MEDS ORDERED: Cyclobenzaprine 10 MG TAB PO PRN (19:23)
[2023-03-31] MEDS ORDERED: Potassium Chloride 20 MEQ TAB PO SCH (19:30)
[2023-03-31] MEDS: Cyanocobalamin (Vitamin B-12) 1,000 MCG TAB PO SCH (20:04)
[2023-03-31] MEDS: Multivit, Therapeutic 1 TAB PO SCH (20:04)
[2023-03-31] MEDS: Atorvastatin Calcium 40 MG TAB PO SCH (20:05)
[2023-03-31] MEDS: Loratadine 10 MG TAB PO SCH (20:05)
[2023-03-31] MEDS: Folic Acid 1 MG TAB PO SCH (20:05)
[2023-03-31] MEDS: HumaLOG 300 UNITS/3 ML VIAL SC PRN (20:09)
[2023-04-01 06:16] LABS: #Eosinphils 0.1 thou/uL (0.0-0.7); #Monocytes 1.1 thou/uL (0.11-0.59); #Neutrophils 6.6 thou/uL (1.40-6.50); %Basophils 0.3 % (0.0-1.0); %Eosinophils 0.8 % (0.0-10.0); %Lymphocytes 22.9 % (21.0-51.0); %Monocytes 10.3 % (0.0-10.0); Hemoglobin 8.7 g/dL (12.0-16.0); Mean Corpuscular HGB CONC 30.1 g/dL (32.0-36.0); Mean Corpuscular Hemoglobin 25.5 pg (27.0-31.0); Mean Corpuscular Volume 84.8 fl (78.0-98.0); Mean Platelet Volume 9.7 fL (7.4-10.4); Platelet Count 230 10x3/uL (130-400); Red Blood Cell (RBC) Count 3.41 mill/uL (4.20-5.40); White Blood Cell (WBC) Count 10.2 10x3/uL (4.8-10.8)
[2023-04-01 06:42] LABS: ALT (SGPT) 13 U/L (8-55); AST (SGOT) 15 U/L (5-34); Albumin 3.3 g/dL (3.4-4.8); Alkaline Phosphatase 111 U/L (40-110); Anion Gap 12 mmol/L (10-20); BUN (Urea Nitrogen) 36 mg/dL (9.8-20.1); Bilirubin, Total 0.3 mg/dL (0.2-1.2); Calc. Creatinine Clearance 49 mL/min (70-130); Calcium 8.5 mg/dL (7.8-10.44); Carbon Dioxide 23 mmol/L (23-31); Chloride 106 mmol/L (98-107); Estimated GFR 41; Globulin 2.7 g/dL (2.4-3.5); Glucose 116 mg/dL (83-110); Potassium 3.7 mmol/L (3.5-5.1); Sodium 137 mmol/L (136-145)
[2023-04-01] MEDS: Sodium Chloride 0.65% Nasal 44 ML BOT EA NARE SCH ×3 (09:13→21:24)
[2023-04-01] MEDS: NIFEdipine XL 60 MG TAB PO SCH ×2 (09:14→20:31)
[2023-04-01] MEDS: Ferrous Gluconate 324 MG TAB PO SCH (09:14)
[2023-04-01] MEDS: Allopurinol 100 MG TAB PO SCH (09:14)
[2023-04-01] MEDS: Sertraline 100 MG TAB PO SCH (09:15)
[2023-04-01] MEDS: Propranolol HCl LA 60 MG CAP PO SCH (09:15)
[2023-04-01] MEDS: hydrALAZINE 25 MG TAB PO SCH ×2 (09:15→20:31)
[2023-04-01] MEDS: guaiFENesin/DM ER PO SCH ×2 (09:15→20:32)
[2023-04-01] MEDS: Insulin Glargine 30 UNITS/0.3 ML VIAL SC SCH ×2 (09:16→09:20)
[2023-04-01] MEDS: HumaLOG 300 UNITS/3 ML VIAL SC PRN ×3 (12:07→21:03)
[2023-04-01] MEDS ORDERED: Iron Sucrose Complex 200 MG in Sodium Chloride 0.9% 100 ML IVPB SCH (15:00)
[2023-04-01] MEDS ORDERED: Iron, Sodium Ferric Gluconate 250 MG in Sodium Chloride 0.9% 250 ML 250 ML IVPB SCH (15:15)
[2023-04-01 18:23] LABS: Clarity Hazy (Clear); Specific Gravity, Urine 1.016 (1.002-1.036)
[2023-04-01 18:24] LABS: Bilirubin Unable to Interpret (Negative); Blood, Urine Unable to Interpret (Negative); Glucose, Urine (Dipstick) Unable to Interpret mg/dL (Negative); Ketone, Urine Unable to Interpret mg/dL (Negative); Leukocyte Unable to Interpret Leu/uL (Negative); Nitrite Unable to Interpret (Negative); Protein, Urine (Dipstick) Unable to Interpret mg/dL (Neg-Trace); Urobilinogen UNABLE TO INTERPRET mg/dL (Less than 2); pH, Urine 5.8 (5.0-9.0)
[2023-04-01 18:25] LABS: Bacteria/HPF 1+ HPF (None Seen); RBC/HPF Greater than 50 HPF (0-3); Squamous Epithelial 0-3 HPF (0-3)
[2023-04-01] MEDS: Atorvastatin Calcium 40 MG TAB PO SCH (20:30)
[2023-04-01] MEDS ORDERED: cefTRIAXone\\ROCEPHIN 1 GM in Sodium Chloride 0.9% 100 ML IVPB SCH (20:30)
[2023-04-01] MEDS: Folic Acid 1 MG TAB PO SCH (20:31)
[2023-04-01] MEDS: Loratadine 10 MG TAB PO SCH (20:32)
[2023-04-01] MEDS: Multivit, Therapeutic 1 TAB PO SCH (20:34)
[2023-04-01] MEDS: Cyanocobalamin (Vitamin B-12) 1,000 MCG TAB PO SCH (20:34)
[2023-04-01] MEDS ORDERED: Insulin Glargine 30 UNITS/0.3 ML VIAL SC SCH (21:00)
[2023-04-02 04:45] LABS: #Eosinphils 0.1 thou/uL (0.0-0.7); #Neutrophils 7.4 thou/uL (1.40-6.50); %Basophils 0.2 % (0.0-1.0); %Eosinophils 0.8 % (0.0-10.0); %Lymphocytes 14.6 % (21.0-51.0); %Monocytes 9.6 % (0.0-10.0); %Neutrophils 74.2 % (42.0-75.0); Hemoglobin 8.7 g/dL (12.0-16.0); Mean Corpuscular HGB CONC 29.9 g/dL (32.0-36.0); Mean Corpuscular Hemoglobin 25.4 pg (27.0-31.0); Mean Corpuscular Volume 84.8 fl (78.0-98.0); Mean Platelet Volume 10.5 fL (7.4-10.4); Platelet Count 252 10x3/uL (130-400); RBC Distribution Width 18.6 % (11.5-14.5); Red Blood Cell (RBC) Count 3.43 mill/uL (4.20-5.40)
[2023-04-02 05:12] LABS: Anion Gap 13 mmol/L (10-20); BUN (Urea Nitrogen) 30 mg/dL (9.8-20.1); Calc. Creatinine Clearance 50 mL/min (70-130); Calcium 8.6 mg/dL (7.8-10.44); Carbon Dioxide 22 mmol/L (23-31); Chloride 105 mmol/L (98-107); Estimated GFR 42; Glucose 150 mg/dL (83-110); Potassium 3.9 mmol/L (3.5-5.1); Sodium 136 mmol/L (136-145)
[2023-04-02] MEDS ORDERED: Cefdinir 300 MG CAP PO SCH ×2 (09:15→21:00)
[2023-04-02] MEDS: Sodium Chloride 0.65% Nasal 44 ML BOT EA NARE SCH (09:28)
[2023-04-02] MEDS: Propranolol HCl LA 60 MG CAP PO SCH (09:29)
[2023-04-02] MEDS: NIFEdipine XL 60 MG TAB PO SCH (09:29)
[2023-04-02] MEDS: hydrALAZINE 25 MG TAB PO SCH (09:29)
[2023-04-02] MEDS: Ferrous Gluconate 324 MG TAB PO SCH (09:30)
[2023-04-02] MEDS: Sertraline 100 MG TAB PO SCH (09:30)
[2023-04-02] MEDS: Allopurinol 100 MG TAB PO SCH (09:30)
[2023-04-02] MEDS: guaiFENesin/DM ER PO SCH (09:30)
[2023-04-02 11:24] VITALS: BP 167/72; TEMP 98.1
== END 2023-04-02 14:15 | DRG 280 ==
LOC: ERS 15:25 → 2NO 18:16 → IMCU/EMU 03-30 05:54 → 2NO 04-01 21:41
PROVIDERS: ADMIT Internal Medicine; ATTEND Internal Medicine
PROC: 30233N1 Transfusion of Nonautologous Red Blood Cells into Peripheral Vein, Percutaneous Approach (ICD-10-PCS; principal; 2023-03-29)
PROC: 4A033R1 Measurement of Arterial Saturation, Peripheral, Percutaneous Approach (ICD-10-PCS; 2023-03-30)
DX: I13.0 Hypertensive heart and chronic kidney disease with heart failure and stage 1 through stage 4 chronic kidney disease, or unspecified chronic kidney disease (principal); I21.A1 Myocardial infarction type 2; I50.33 Acute on chronic diastolic (congestive) heart failure; J96.01 Acute respiratory failure with hypoxia; E87.20 Acidosis, unspecified; N17.9 Acute kidney failure, unspecified; E78.5 Hyperlipidemia, unspecified; E11.22 Type 2 diabetes mellitus with diabetic chronic kidney disease; F41.9 Anxiety disorder, unspecified; F32.A Depression, unspecified; G25.81 Restless legs syndrome; D63.1 Anemia in chronic kidney disease; D63.8 Anemia in other chronic diseases classified elsewhere; N18.30 Chronic kidney disease, stage 3 unspecified; E87.6 Hypokalemia; E11.649 Type 2 diabetes mellitus with hypoglycemia without coma; D50.9 Iron deficiency anemia, unspecified; E66.9 Obesity, unspecified; Z88.5 Allergy status to narcotic agent; Z79.899 Other long term (current) drug therapy; Z79.82 Long term (current) use of aspirin; Z79.4 Long term (current) use of insulin; Z90.49 Acquired absence of other specified parts of digestive tract; Z98.890 Other specified postprocedural states; Z68.35 Body mass index [BMI] 35.0-35.9, adult
CPT/HCPCS: 36415; 36416; 36430; 36600; 71045; 80048; 80053; 80076; 81001; 82274; 82553; 82607; 82728; 82805; 83540; 83550; 83880; 84443; 84484; 85025; 85046; 85610; 85730; 86850; 86900; 86901; 87086; 93005; 93306; 96365; 96366; 96374; C9113; J0696; J1815; J1940; J2916; J3490; J7050; P9016

== ENCOUNTER 2023-04-20 13:40 | Inpatient (IN) | payer MEDICARE, OTHER ==
[2023-04-20 14:52] LABS: #Eosinphils 0.1 thou/uL (0.0-0.7); #Monocytes 0.8 thou/uL (0.11-0.59); #Neutrophils 6.6 thou/uL (1.40-6.50); %Basophils 0.3 % (0.0-1.0); %Eosinophils 0.5 % (0.0-10.0); %Lymphocytes 17.5 % (21.0-51.0); %Monocytes 8.6 % (0.0-10.0); %Neutrophils 71.5 % (42.0-75.0); Hemoglobin 6.1 g/dL (12.0-16.0); Mean Corpuscular HGB CONC 30.5 g/dL (32.0-36.0); Mean Corpuscular Hemoglobin 27.1 pg (27.0-31.0); Mean Corpuscular Volume 88.9 fl (78.0-98.0); Mean Platelet Volume 9.7 fL (7.4-10.4); Platelet Count 334 10x3/uL (130-400); RBC Distribution Width 22.2 % (11.5-14.5); Red Blood Cell (RBC) Count 2.25 mill/uL (4.20-5.40); White Blood Cell (WBC) Count 9.3 10x3/uL (4.8-10.8)
[2023-04-20 15:01] LABS: INR-International Normal Ratio 1.1; Prothrombin Time 14.8 sec (12.0-14.7)
[2023-04-20 15:14] LABS: ALT (SGPT) 12 U/L (8-55); AST (SGOT) 18 U/L (5-34); Albumin 3.4 g/dL (3.4-4.8); Alkaline Phosphatase 126 U/L (40-110); Anion Gap 4 mmol/L (10-20); BUN (Urea Nitrogen) 31 mg/dL (9.8-20.1); Bilirubin, Total 0.3 mg/dL (0.2-1.2); Calc. Creatinine Clearance 0 mL/min (70-130); Calcium 8.6 mg/dL (7.8-10.44); Carbon Dioxide 22 mmol/L (23-31); Chloride 115 mmol/L (98-107); Estimated GFR 38; Globulin 2.7 g/dL (2.4-3.5); Glucose 345 mg/dL (83-110); Potassium 3.8 mmol/L (3.5-5.1); Protein, Total 6.1 g/dL (5.8-8.1); Sodium 137 mmol/L (136-145)
[2023-04-20] MEDS ORDERED: Labetalol HCl 100 MG/20 ML VIAL ONE (19:00)
[2023-04-20] MEDS ORDERED: Furosemide 40 MG/4 ML VIAL ONE (19:36)
[2023-04-20] MEDS ORDERED: Nitroglycerin 0.4 MG TAB 1 EACH ONE (19:44)
[2023-04-20] MEDS ORDERED: Ondansetron PF 4 MG/2 ML Vial IVP PRN (20:36)
[2023-04-20 20:37] LABS: Troponin I Less than 0.010 ng/mL (< 0.028)
[2023-04-20] MEDS ORDERED: Sodium Chloride 0.9% 1,000 ML IV SCH (20:45)
[2023-04-20] MEDS ORDERED: Glucagon 1 MG/ML KIT IM PRN (20:46)
[2023-04-20] MEDS ORDERED: Dextrose 50% Abboject 50 ML SYRINGE SLOW IVP PRN (20:46)
[2023-04-20] MEDS ORDERED: Dextrose 5% in Water 1,000 ML IV PRN (20:46)
[2023-04-20 20:54] LABS: #Basophils 0.1 thou/uL (0.0-0.2); #Eosinphils 0.1 thou/uL (0.0-0.7); #Monocytes 0.9 thou/uL (0.11-0.59); #Neutrophils 5.8 thou/uL (1.40-6.50); %Basophils 0.6 % (0.0-1.0); %Eosinophils 0.6 % (0.0-10.0); %Lymphocytes 20.7 % (21.0-51.0); %Monocytes 9.9 % (0.0-10.0); %Neutrophils 66.4 % (42.0-75.0); Hematocrit 25.5 % (36.0-47.0); Hemoglobin 7.7 g/dL (12.0-16.0); Mean Corpuscular HGB CONC 30.2 g/dL (32.0-36.0); Mean Corpuscular Hemoglobin 27.5 pg (27.0-31.0); Mean Corpuscular Volume 91.1 fl (78.0-98.0); Mean Platelet Volume 9.7 fL (7.4-10.4); Platelet Count 318 10x3/uL (130-400); RBC Distribution Width 20.5 % (11.5-14.5); White Blood Cell (WBC) Count 8.7 10x3/uL (4.8-10.8)
[2023-04-20] MEDS: Famotidine/PF 20 mg/2ml Vial SLOW IVP SCH (22:11)
[2023-04-20] MEDS: hydrALAZINE 20 MG/ML VIAL SLOW IVP PRN (22:11)
[2023-04-20] MEDS: Insulin Glargine 30 UNITS/0.3 ML VIAL SC SCH (22:12)
[2023-04-20 23:58] LABS: Troponin I Less than 0.010 ng/mL (< 0.028)
[2023-04-21] VITALS: BMI 35.7
[2023-04-21] MEDS ORDERED: Amlodipine 10 MG TAB PO SCH (02:46)
[2023-04-21] MEDS ORDERED: Amlodipine 10 MG TAB ONE (03:12)
[2023-04-21 05:22] LABS: Troponin I 0.022 ng/mL (< 0.028)
[2023-04-21 05:23] LABS: #Monocytes 0.9 thou/uL (0.11-0.59); #Neutrophils 8.2 thou/uL (1.40-6.50); %Basophils 0.4 % (0.0-1.0); %Eosinophils 0.4 % (0.0-10.0); %Lymphocytes 15.2 % (21.0-51.0); %Monocytes 7.9 % (0.0-10.0); %Neutrophils 74.8 % (42.0-75.0); Hematocrit 25.1 % (36.0-47.0); Hemoglobin 7.8 g/dL (12.0-16.0); Mean Corpuscular HGB CONC 31.1 g/dL (32.0-36.0); Mean Corpuscular Hemoglobin 27.4 pg (27.0-31.0); Mean Platelet Volume 9.8 fL (7.4-10.4); Platelet Count 320 10x3/uL (130-400); RBC Distribution Width 20.5 % (11.5-14.5); Red Blood Cell (RBC) Count 2.85 mill/uL (4.20-5.40)
[2023-04-21 05:27] LABS: Mean Corpuscular Volume 88.1 fl (78.0-98.0)
[2023-04-21 05:55] LABS: BUN (Urea Nitrogen) 28 mg/dL (9.8-20.1); Calc. Creatinine Clearance 47 mL/min (70-130); Calcium 8.6 mg/dL (7.8-10.44); Carbon Dioxide 21 mmol/L (23-31); Estimated GFR 40; Glucose 225 mg/dL (83-110)
[2023-04-21] MEDS ORDERED: Furosemide 20 MG/2 ML VIAL SLOW IVP SCH (06:00)
[2023-04-21] MEDS: HumaLOG 300 UNITS/3 ML VIAL SC PRN ×3 (06:01→17:14)
[2023-04-21] MEDS: hydrALAZINE 20 MG/ML VIAL SLOW IVP PRN (06:01)
[2023-04-21 06:04] LABS: Anion Gap 14 mmol/L (10-20); Chloride 102 mmol/L (98-107); Potassium 3.5 mmol/L (3.5-5.1); Sodium 134 mmol/L (136-145)
[2023-04-21] MEDS ORDERED: Ipratropium/Albuterol 3 ML NEB NEB PRN (07:43)
[2023-04-21] MEDS ORDERED: Non-Formulary Item 1 EACH (Cyclobenzaprine Hcl [Cyclobenzaprine Hcl] 5 MG Tablet) PO PRN (07:43)
[2023-04-21] MEDS ORDERED: Bisacodyl 5 MG TAB PO PRN (07:43)
[2023-04-21] MEDS: hydrALAZINE 25 MG TAB PO SCH ×2 (08:16→19:58)
[2023-04-21] MEDS: Allopurinol 100 MG TAB PO SCH (08:16)
[2023-04-21] MEDS: Ferrous Gluconate 324 MG TAB PO SCH (08:16)
[2023-04-21] MEDS: NIFEdipine XL 60 MG TAB PO SCH ×2 (08:16→21:07)
[2023-04-21] MEDS: Sertraline 100 MG TAB PO SCH (08:16)
[2023-04-21] MEDS: Loratadine 10 MG TAB PO SCH (08:17)
[2023-04-21] MEDS ORDERED: Cetirizine HCl 10 MG TAB PO SCH (09:00)
[2023-04-21] MEDS ORDERED: Metolazone 5 MG TAB PO SCH (12:45)
[2023-04-21] MEDS: Furosemide 40 MG/4 ML VIAL SLOW IVP SCH (13:08)
[2023-04-21] MEDS: Insulin Glargine 30 UNITS/0.3 ML VIAL SC SCH (21:06)
[2023-04-21] MEDS: Famotidine/PF 20 mg/2ml Vial SLOW IVP SCH (21:06)
[2023-04-21] MEDS: Atorvastatin Calcium 40 MG TAB PO SCH (21:07)
[2023-04-21] MEDS: Folic Acid 1 MG TAB PO SCH (21:07)
[2023-04-21] MEDS: Cyanocobalamin (Vitamin B-12) 1,000 MCG TAB PO SCH (21:07)
[2023-04-21] MEDS: Multivit, Therapeutic 1 TAB PO SCH (21:07)
[2023-04-22] MEDS: HumaLOG 300 UNITS/3 ML VIAL SC PRN ×2 (05:06→20:30)
[2023-04-22] MEDS: Furosemide 40 MG/4 ML VIAL SLOW IVP SCH ×2 (05:06→13:38)
[2023-04-22] MEDS: NIFEdipine XL 60 MG TAB PO SCH ×2 (08:24→20:14)
[2023-04-22] MEDS: hydrALAZINE 25 MG TAB PO SCH ×2 (08:24→20:14)
[2023-04-22] MEDS: Allopurinol 100 MG TAB PO SCH (08:25)
[2023-04-22] MEDS: Ferrous Gluconate 324 MG TAB PO SCH (08:25)
[2023-04-22] MEDS: Loratadine 10 MG TAB PO SCH (08:25)
[2023-04-22] MEDS: Sertraline 100 MG TAB PO SCH (08:25)
[2023-04-22] MEDS: Cyanocobalamin (Vitamin B-12) 1,000 MCG TAB PO SCH (20:14)
[2023-04-22] MEDS: Atorvastatin Calcium 40 MG TAB PO SCH (20:14)
[2023-04-22] MEDS: Multivit, Therapeutic 1 TAB PO SCH (20:14)
[2023-04-22] MEDS: Folic Acid 1 MG TAB PO SCH (20:15)
[2023-04-22] MEDS: Famotidine/PF 20 mg/2ml Vial SLOW IVP SCH (20:15)
[2023-04-22] MEDS: Insulin Glargine 30 UNITS/0.3 ML VIAL SC SCH (20:27)
[2023-04-22] MEDS: traMADol HCl 50 MG TAB PO PRN (21:31)
[2023-04-23 05:17] LABS: #Eosinphils 0.1 thou/uL (0.0-0.7); #Monocytes 0.8 thou/uL (0.11-0.59); #Neutrophils 6.6 thou/uL (1.40-6.50); %Basophils 0.4 % (0.0-1.0); %Eosinophils 0.5 % (0.0-10.0); %Neutrophils 71.4 % (42.0-75.0); Hemoglobin 7.4 g/dL (12.0-16.0); Mean Corpuscular HGB CONC 30.8 g/dL (32.0-36.0); Mean Corpuscular Hemoglobin 27.2 pg (27.0-31.0); Mean Corpuscular Volume 88.2 fl (78.0-98.0); Mean Platelet Volume 10.3 fL (7.4-10.4); Platelet Count 283 10x3/uL (130-400); RBC Distribution Width 20.4 % (11.5-14.5); Red Blood Cell (RBC) Count 2.72 mill/uL (4.20-5.40); White Blood Cell (WBC) Count 9.2 10x3/uL (4.8-10.8)
[2023-04-23 05:36] LABS: Anion Gap 14 mmol/L (10-20); BUN (Urea Nitrogen) 31 mg/dL (9.8-20.1); Calc. Creatinine Clearance 35 mL/min (70-130); Calcium 8.6 mg/dL (7.8-10.44); Carbon Dioxide 31 mmol/L (23-31); Chloride 93 mmol/L (98-107); Estimated GFR 27; Glucose 311 mg/dL (83-110); Sodium 135 mmol/L (136-145)
[2023-04-23] MEDS: Cyclobenzaprine 10 MG TAB PO PRN ×2 (05:43→20:27)
[2023-04-23] MEDS: HumaLOG 300 UNITS/3 ML VIAL SC PRN ×4 (05:45→21:36)
[2023-04-23] MEDS: Loratadine 10 MG TAB PO SCH (08:43)
[2023-04-23] MEDS: Sertraline 100 MG TAB PO SCH (08:43)
[2023-04-23] MEDS: NIFEdipine XL 60 MG TAB PO SCH ×2 (08:43→20:23)
[2023-04-23] MEDS: Ferrous Gluconate 324 MG TAB PO SCH (08:45)
[2023-04-23] MEDS: hydrALAZINE 25 MG TAB PO SCH ×2 (08:45→20:26)
[2023-04-23] MEDS: Allopurinol 100 MG TAB PO SCH (08:48)
[2023-04-23] MEDS ORDERED: Potassium Chloride 20 MEQ TAB PO SCH (09:00)
[2023-04-23] MEDS ORDERED: Furosemide 40 MG/4 ML VIAL SLOW IVP SCH (09:00)
[2023-04-23] MEDS: traMADol HCl 50 MG TAB PO PRN ×2 (11:33→20:26)
[2023-04-23] MEDS: Potassium Chloride 20 MEQ TAB PO SCH (16:15)
[2023-04-23] MEDS: Cyanocobalamin (Vitamin B-12) 1,000 MCG TAB PO SCH (20:26)
[2023-04-23] MEDS: Multivit, Therapeutic 1 TAB PO SCH (20:26)
[2023-04-23] MEDS: Atorvastatin Calcium 40 MG TAB PO SCH (20:26)
[2023-04-23] MEDS: Folic Acid 1 MG TAB PO SCH (20:26)
[2023-04-23] MEDS: Famotidine/PF 20 mg/2ml Vial SLOW IVP SCH (20:28)
[2023-04-23] MEDS: Insulin Glargine 30 UNITS/0.3 ML VIAL SC SCH (21:28)
[2023-04-24 05:39] LABS: #Neutrophils 8.1 thou/uL (1.40-6.50); %Basophils 0.2 % (0.0-1.0); %Lymphocytes 12.5 % (21.0-51.0); %Monocytes 9.3 % (0.0-10.0); %Neutrophils 77.1 % (42.0-75.0); Hematocrit 24.7 % (36.0-47.0); Hemoglobin 7.6 g/dL (12.0-16.0); Mean Corpuscular HGB CONC 30.8 g/dL (32.0-36.0); Mean Corpuscular Hemoglobin 27.1 pg (27.0-31.0); Mean Corpuscular Volume 88.2 fl (78.0-98.0); Mean Platelet Volume 10.1 fL (7.4-10.4); Platelet Count 255 10x3/uL (130-400); RBC Distribution Width 20.1 % (11.5-14.5); White Blood Cell (WBC) Count 10.5 10x3/uL (4.8-10.8)
[2023-04-24 06:15] LABS: Anion Gap 13 mmol/L (10-20); BUN (Urea Nitrogen) 31 mg/dL (9.8-20.1); Calc. Creatinine Clearance 35 mL/min (70-130); Calcium 8.6 mg/dL (7.8-10.44); Carbon Dioxide 30 mmol/L (23-31); Chloride 94 mmol/L (98-107); Estimated GFR 28; Glucose 246 mg/dL (83-110); Potassium 3.8 mmol/L (3.5-5.1); Sodium 133 mmol/L (136-145)
[2023-04-24] MEDS: Ferrous Gluconate 324 MG TAB PO SCH (07:54)
[2023-04-24] MEDS: Potassium Chloride 20 MEQ TAB PO SCH ×2 (07:54→17:13)
[2023-04-24] MEDS ORDERED: Loratadine 10 MG TAB PO SCH (09:00)
[2023-04-24] MEDS ORDERED: Non-Formulary Item 1 EACH (Multivitamin [Multi-Vitamin Daily] 1 TABLET Tablet) PO SCH (09:00)
[2023-04-24] MEDS ORDERED: Cyanocobalamin (Vitamin B-12) 1,000 MCG TAB PO SCH (09:00)
[2023-04-24] MEDS ORDERED: PROPOFOL 200 MG/20 ML VIAL ONE (09:52)
[2023-04-24] MEDS ORDERED: Lidocaine 1% PF 5 ML VIAL ONE (09:52)
[2023-04-24 11:06] LABS: #Monocytes 0.8 thou/uL (0.11-0.59); #Neutrophils 6.4 thou/uL (1.40-6.50); %Basophils 0.1 % (0.0-1.0); %Eosinophils 0.2 % (0.0-10.0); %Lymphocytes 12.1 % (21.0-51.0); %Monocytes 9.8 % (0.0-10.0); %Neutrophils 77.2 % (42.0-75.0); Hematocrit 25.4 % (36.0-47.0); Hemoglobin 7.7 g/dL (12.0-16.0); Mean Corpuscular HGB CONC 30.3 g/dL (32.0-36.0); Mean Corpuscular Hemoglobin 27.2 pg (27.0-31.0); Mean Corpuscular Volume 89.8 fl (78.0-98.0); Mean Platelet Volume 9.6 fL (7.4-10.4); Platelet Count 229 10x3/uL (130-400); Red Blood Cell (RBC) Count 2.83 mill/uL (4.20-5.40); White Blood Cell (WBC) Count 8.4 10x3/uL (4.8-10.8)
[2023-04-24] MEDS: hydrALAZINE 25 MG TAB PO SCH ×2 (11:13→21:11)
[2023-04-24] MEDS: NIFEdipine XL 60 MG TAB PO SCH ×2 (11:13→21:12)
[2023-04-24] MEDS: Sertraline 100 MG TAB PO SCH (11:13)
[2023-04-24] MEDS: Loratadine 10 MG TAB PO SCH (11:14)
[2023-04-24] MEDS: Allopurinol 100 MG TAB PO SCH (11:15)
[2023-04-24 11:42] LABS: Anion Gap 12 mmol/L (10-20); BUN (Urea Nitrogen) 28 mg/dL (9.8-20.1); Calc. Creatinine Clearance 36 mL/min (70-130); Calcium 8.8 mg/dL (7.8-10.44); Carbon Dioxide 32 mmol/L (23-31); Chloride 94 mmol/L (98-107); Estimated GFR 32; Glucose 234 mg/dL (83-110); Potassium 3.8 mmol/L (3.5-5.1); Sodium 134 mmol/L (136-145)
[2023-04-24] MEDS: HumaLOG 300 UNITS/3 ML VIAL SC PRN ×2 (17:12→21:15)
[2023-04-24] MEDS: traMADol HCl 50 MG TAB PO PRN (17:13)
[2023-04-24] MEDS ORDERED: HumaLOG 300 UNITS/3 ML VIAL SC PRN (17:37)
[2023-04-24] MEDS: Folic Acid 1 MG TAB PO SCH (21:10)
[2023-04-24] MEDS: Cyanocobalamin (Vitamin B-12) 1,000 MCG TAB PO SCH (21:10)
[2023-04-24] MEDS: Atorvastatin Calcium 40 MG TAB PO SCH (21:11)
[2023-04-24] MEDS: Multivit, Therapeutic 1 TAB PO SCH (21:11)
[2023-04-24] MEDS: Famotidine/PF 20 mg/2ml Vial SLOW IVP SCH (21:12)
[2023-04-24] MEDS: Insulin Glargine 30 UNITS/0.3 ML VIAL SC SCH (21:14)
[2023-04-24] MEDS: Cyclobenzaprine 10 MG TAB PO PRN (21:23)
[2023-04-25 05:19] LABS: Hematocrit 24.3 % (36.0-47.0); Hemoglobin 7.4 g/dL (12.0-16.0); Mean Corpuscular HGB CONC 30.5 g/dL (32.0-36.0); Mean Corpuscular Hemoglobin 26.5 pg (27.0-31.0); Mean Platelet Volume 10.1 fL (7.4-10.4); Platelet Count 247 10x3/uL (130-400); RBC Distribution Width 19.2 % (11.5-14.5); Red Blood Cell (RBC) Count 2.79 mill/uL (4.20-5.40); White Blood Cell (WBC) Count 10.5 10x3/uL (4.8-10.8)
[2023-04-25 06:11] LABS: Mean Corpuscular Volume 87.1 fl (78.0-98.0)
[2023-04-25] MEDS: NIFEdipine XL 60 MG TAB PO SCH (09:50)
[2023-04-25] MEDS: Ferrous Gluconate 324 MG TAB PO SCH (09:50)
[2023-04-25] MEDS: Potassium Chloride 20 MEQ TAB PO SCH (09:50)
[2023-04-25] MEDS: Sertraline 100 MG TAB PO SCH (09:51)
[2023-04-25] MEDS: Loratadine 10 MG TAB PO SCH (09:51)
[2023-04-25] MEDS: Allopurinol 100 MG TAB PO SCH (09:51)
[2023-04-25] MEDS: hydrALAZINE 25 MG TAB PO SCH (09:51)
[2023-04-25 12:03] VITALS: BP 127/56; TEMP 98.3
[2023-04-25] MEDS: traMADol HCl 50 MG TAB PO PRN (12:52)
[2023-04-25 16:58] LABS: EliA Celiac New Method **** NEW METHOD ****; t-Transglutaminase (tTG) IgA 0.2 EliAU/mL (<7 Negative)
== END 2023-04-25 15:02 | DRG 641 ==
LOC: ERS 13:40 → 2SE 20:25 → OBSVTOIN 04-21 12:31 → SURG A 04-21 20:53
PROVIDERS: ADMIT Hospitalist; ATTEND Family Medicine
PROC: 30233N1 Transfusion of Nonautologous Red Blood Cells into Peripheral Vein, Percutaneous Approach (ICD-10-PCS; 2023-04-20)
PROC: 0DJ08ZZ Inspection of Upper Intestinal Tract, Via Natural or Artificial Opening Endoscopic (ICD-10-PCS; principal; 2023-04-24)
DX: E87.71 Transfusion associated circulatory overload (principal); N17.9 Acute kidney failure, unspecified; I13.0 Hypertensive heart and chronic kidney disease with heart failure and stage 1 through stage 4 chronic kidney disease, or unspecified chronic kidney disease; I50.32 Chronic diastolic (congestive) heart failure; Z88.6 Allergy status to analgesic agent; Z79.82 Long term (current) use of aspirin; Z79.899 Other long term (current) drug therapy; I16.0 Hypertensive urgency; E11.65 Type 2 diabetes mellitus with hyperglycemia; R53.81 Other malaise; E11.22 Type 2 diabetes mellitus with diabetic chronic kidney disease; N18.30 Chronic kidney disease, stage 3 unspecified
CPT/HCPCS: 36415; 36416; 36430; 71045; 80048; 80053; 83516; 83880; 84484; 85025; 85027; 85610; 85730; 86850; 86900; 86901; 93005; 96374; 96375; 96376; G0378; J0360; J1815; J1940; J2704; P9016; S0028

== ENCOUNTER 2023-05-21 17:42 | Emergency (ER) | payer MEDICARE, OTHER ==
[2023-05-21 18:02] LABS: #Basophils 0.1 thou/uL (0.0-0.2); #Eosinphils 0.1 thou/uL (0.0-0.7); #Monocytes 0.8 thou/uL (0.11-0.59); #Neutrophils 5.3 thou/uL (1.40-6.50); %Basophils 0.6 % (0.0-1.0); %Eosinophils 1.4 % (0.0-10.0); %Lymphocytes 26.2 % (21.0-51.0); %Monocytes 9.2 % (0.0-10.0); %Neutrophils 61.7 % (42.0-75.0); Hematocrit 26.1 % (36.0-47.0); Hemoglobin 7.7 g/dL (12.0-16.0); Mean Corpuscular HGB CONC 29.5 g/dL (32.0-36.0); Mean Corpuscular Volume 94.9 fl (78.0-98.0); Mean Platelet Volume 9.6 fL (7.4-10.4); Platelet Count 317 10x3/uL (130-400); RBC Distribution Width 23.8 % (11.5-14.5); Red Blood Cell (RBC) Count 2.75 mill/uL (4.20-5.40); White Blood Cell (WBC) Count 8.6 10x3/uL (4.8-10.8)
[2023-05-21 18:31] LABS: ALT (SGPT) 13 U/L (8-55); AST (SGOT) 19 U/L (5-34); Albumin 3.5 g/dL (3.4-4.8); Alkaline Phosphatase 125 U/L (40-110); Anion Gap 14 mmol/L (10-20); BUN (Urea Nitrogen) 22 mg/dL (9.8-20.1); Bilirubin, Total 0.2 mg/dL (0.2-1.2); Calc. Creatinine Clearance 0 mL/min (70-130); Calcium 8.9 mg/dL (7.8-10.44); Carbon Dioxide 25 mmol/L (23-31); Chloride 105 mmol/L (98-107); Estimated GFR 43; Globulin 2.8 g/dL (2.4-3.5); Glucose 188 mg/dL (83-110); Potassium 4.4 mmol/L (3.5-5.1); Protein, Total 6.3 g/dL (5.8-8.1); Sodium 140 mmol/L (136-145)
== END 2023-05-21 20:07 | disposition home or self-care (01) ==
LOC: ERS 17:42
DX: D64.9 Anemia, unspecified (principal); E11.9 Type 2 diabetes mellitus without complications; E78.5 Hyperlipidemia, unspecified; I10 Essential (primary) hypertension; Z79.899 Other long term (current) drug therapy; Z79.4 Long term (current) use of insulin
CPT/HCPCS: 36415; 80053; 85025; 86850; 86900; 86901; 99284

== ENCOUNTER 2023-09-13 11:38 | Outpatient (CLI) | payer MEDICARE, OTHER | END 2023-09-13 11:39 | disposition home or self-care (01) | LOC: BICMAMMO 11:38 | PROVIDERS: ATTEND Internal Medicine Hematology & Oncology | DX: Z12.31 Encounter for screening mammogram for malignant neoplasm of breast (principal); Z85.3 Personal history of malignant neoplasm of breast; Z90.11 Acquired absence of right breast and nipple | CPT/HCPCS: 77063; 77067 ==

== ENCOUNTER 2023-09-13 12:09 | Outpatient (CLI) | payer MEDICARE, OTHER | END 2023-09-13 12:10 | disposition home or self-care (01) | LOC: BICCT 12:09 | PROVIDERS: ATTEND Urology | DX: N39.46 Mixed incontinence (principal); R31.29 Other microscopic hematuria; E11.9 Type 2 diabetes mellitus without complications; N20.0 Calculus of kidney; N28.1 Cyst of kidney, acquired | CPT/HCPCS: 74176 ==

== ENCOUNTER 2024-04-14 14:20 | Outpatient (CLI) | payer MEDICARE, OTHER | END 2024-04-14 14:21 | disposition home or self-care (01) | LOC: BICULT 14:20 | PROVIDERS: ATTEND Urology | DX: N28.1 Cyst of kidney, acquired (principal); N20.0 Calculus of kidney; N39.46 Mixed incontinence; E11.9 Type 2 diabetes mellitus without complications; N28.9 Disorder of kidney and ureter, unspecified | CPT/HCPCS: 76770 ==

== ENCOUNTER 2024-05-13 19:36 | Inpatient (IN) | payer MEDICARE, OTHER ==
[2024-05-13 22:59] VITALS: BMI 33.5
[2024-05-13] MEDS ORDERED: Ondansetron PF 4 MG/2 ML Vial IVP PRN (23:37)
[2024-05-14] MEDS: hydrALAZINE 20 MG/ML VIAL SLOW IVP PRN (00:50)
[2024-05-14] MEDS ORDERED: Dextrose 50% Abboject 50 ML SYRINGE SLOW IVP PRN (00:53)
[2024-05-14] MEDS ORDERED: Glucagon 1 MG/ML KIT IM PRN (00:53)
[2024-05-14] MEDS ORDERED: Dextrose 5% in Water 1,000 ML IV PRN (00:53)
[2024-05-14] MEDS: Sodium Chloride 0.9% 1,000 ML IV SCH ×2 (01:56→01:57)
[2024-05-14 04:01] LABS: #Basophils 0.03 10x3/uL (0.0-0.2); %Basophils 0.4 % (0.0-1.0); %Eosinophils 1.5 % (0.0-10.0); %Lymphocytes 27.1 % (21.0-51.0); %Monocytes 11.6 % (0.0-10.0); %Neutrophils 58.7 % (42.0-75.0); Hemoglobin 9.8 g/dL (12.0-16.0); Mean Corpuscular HGB CONC 32.7 g/dL (32.0-36.0); Mean Corpuscular Hemoglobin 28.9 pg (27.0-31.0); Mean Corpuscular Volume 88.5 fL (78.0-98.0); Platelet Count 190 10x3/uL (130-400); RBC Distribution Width 15.3 % (11.5-14.5); Red Blood Cell (RBC) Count 3.39 mill/uL (4.20-5.40)
[2024-05-14 04:30] LABS: Anion Gap 15 mmol/L (10-20); BUN (Urea Nitrogen) 54 mg/dL (9.8-20.1); Calc. Creatinine Clearance 32 mL/min (70-130); Calcium 8.8 mg/dL (7.8-10.44); Carbon Dioxide 24 mmol/L (23-31); Chloride 107 mmol/L (98-107); Estimated GFR 28; Glucose 276 mg/dL (83-110); Potassium 3.9 mmol/L (3.5-5.1); Sodium 142 mmol/L (136-145)
[2024-05-14] MEDS: Acetaminophen 325 MG TAB PO PRN (04:47)
[2024-05-14] MEDS: Insulin Lispro 100 UNIT/ML 10 ML VIAL SC PRN (06:36)
[2024-05-14] MEDS ORDERED: Nystatin Powder 15 GM BOT TOP PRN (06:55)
[2024-05-14] MEDS: Propranolol HCl LA 60 MG CAP PO SCH (08:44)
[2024-05-14] MEDS: NIFEdipine XL 60 MG ER.TAB PO SCH (08:44)
[2024-05-14] MEDS: Sertraline 100 MG TAB PO SCH (08:46)
[2024-05-14] MEDS: Multivit, Therapeutic 1 TAB PO SCH (08:46)
[2024-05-14] MEDS: hydrALAZINE 25 MG TAB PO SCH (08:46)
[2024-05-14] MEDS: Trospium 20 MG TAB PO SCH (08:46)
[2024-05-14] MEDS: Ferrous Sulfate 325 MG TAB PO SCH (08:46)
[2024-05-14] MEDS: Pantoprazole DR 40 MG TAB PO SCH (08:47)
[2024-05-14] MEDS: Loratadine 10 MG TAB PO SCH (08:47)
[2024-05-14] MEDS: Cholecalciferol 1,000 UNITS (25 MCG) TAB PO SCH (08:47)
[2024-05-14 10:00] LABS: #Basophils 0.03 10x3/uL (0.0-0.2); %Basophils 0.4 % (0.0-1.0); %Lymphocytes 28.7 % (21.0-51.0); %Monocytes 10.1 % (0.0-10.0); %Neutrophils 59.1 % (42.0-75.0); Hematocrit 32.2 % (36.0-47.0); Hemoglobin 10.6 g/dL (12.0-16.0); Mean Corpuscular HGB CONC 32.9 g/dL (32.0-36.0); Mean Corpuscular Hemoglobin 29.4 pg (27.0-31.0); Mean Corpuscular Volume 89.4 fL (78.0-98.0); Mean Platelet Volume 10.2 fL (7.4-10.4); Platelet Count 176 10x3/uL (130-400); RBC Distribution Width 15.2 % (11.5-14.5)
[2024-05-14 10:29] LABS: Hemoglobin A1c 7.5 % (4.0-6.0)
[2024-05-14] MEDS: rOPINIRole HCl 0.5 MG TAB PO SCH (20:44)
[2024-05-14] MEDS: Atorvastatin Calcium 40 MG TAB PO SCH (20:44)
[2024-05-15 05:02] LABS: #Basophils 0.03 10x3/uL (0.0-0.2); %Basophils 0.3 % (0.0-1.0); %Eosinophils 1.7 % (0.0-10.0); %Lymphocytes 28.7 % (21.0-51.0); %Monocytes 8.6 % (0.0-10.0); %Neutrophils 60.1 % (42.0-75.0); Hematocrit 29.9 % (36.0-47.0); Hemoglobin 9.8 g/dL (12.0-16.0); Mean Corpuscular HGB CONC 32.8 g/dL (32.0-36.0); Mean Corpuscular Hemoglobin 29.7 pg (27.0-31.0); Mean Corpuscular Volume 90.6 fL (78.0-98.0); Mean Platelet Volume 10.9 fL (7.4-10.4); Platelet Count 183 10x3/uL (130-400); RBC Distribution Width 15.3 % (11.5-14.5)
[2024-05-15 05:23] LABS: ALT (SGPT) 10 U/L (8-55); AST (SGOT) 11 U/L (5-34); Albumin 2.9 g/dL (3.4-4.8); Alkaline Phosphatase 101 U/L (40-110); Anion Gap 13 mmol/L (10-20); BUN (Urea Nitrogen) 47 mg/dL (9.8-20.1); Bilirubin, Total 0.3 mg/dL (0.2-1.2); Calc. Creatinine Clearance 34 mL/min (70-130); Calcium 8.7 mg/dL (7.8-10.44); Carbon Dioxide 25 mmol/L (23-31); Chloride 104 mmol/L (98-107); Estimated GFR 30; Glucose 184 mg/dL (83-110); Magnesium 1.9 mg/dL (1.6-2.6); Potassium 4.2 mmol/L (3.5-5.1); Protein, Total 5.9 g/dL (5.8-8.1); Sodium 138 mmol/L (136-145)
[2024-05-15] MEDS ORDERED: Ketorolac Tromethamine 30 MG (1 mL) VIAL IVP PRN (10:48)
[2024-05-15] MEDS ORDERED: Ibuprofen 200 MG TAB PO PRN (10:49)
[2024-05-15] MEDS ORDERED: Lorazepam 2 MG/ML VIAL SLOW IVP SCH (13:45)
[2024-05-15] MEDS ORDERED: Colchicine 0.6 MG TAB PO SCH (21:00)
[2024-05-15] MEDS: Insulin Lispro 100 UNIT/ML 10 ML VIAL SC PRN (21:15)
[2024-05-16 04:09] LABS: #Basophils 0.04 10x3/uL (0.0-0.2); %Basophils 0.4 % (0.0-1.0); %Eosinophils 1.6 % (0.0-10.0); %Lymphocytes 29.2 % (21.0-51.0); %Monocytes 9.6 % (0.0-10.0); %Neutrophils 58.6 % (42.0-75.0); Hematocrit 30.5 % (36.0-47.0); Hemoglobin 10.1 g/dL (12.0-16.0); Mean Corpuscular HGB CONC 33.1 g/dL (32.0-36.0); Mean Corpuscular Hemoglobin 29.2 pg (27.0-31.0); Mean Corpuscular Volume 88.2 fL (78.0-98.0); Mean Platelet Volume 10.7 fL (7.4-10.4); Platelet Count 198 10x3/uL (130-400); RBC Distribution Width 15.3 % (11.5-14.5); Red Blood Cell (RBC) Count 3.46 mill/uL (4.20-5.40)
[2024-05-16 04:26] LABS: ALT (SGPT) 10 U/L (8-55); AST (SGOT) 12 U/L (5-34); Albumin 3.1 g/dL (3.4-4.8); Alkaline Phosphatase 111 U/L (40-110); Anion Gap 14 mmol/L (10-20); BUN (Urea Nitrogen) 47 mg/dL (9.8-20.1); Bilirubin, Total 0.3 mg/dL (0.2-1.2); Calc. Creatinine Clearance 30 mL/min (70-130); Calcium 8.7 mg/dL (7.8-10.44); Carbon Dioxide 24 mmol/L (23-31); Chloride 105 mmol/L (98-107); Estimated GFR 26; Glucose 201 mg/dL (83-110); Potassium 4.3 mmol/L (3.5-5.1); Protein, Total 6.1 g/dL (5.8-8.1); Sodium 139 mmol/L (136-145)
[2024-05-16 15:33] VITALS: BP 135/82; TEMP 97.6
== END 2024-05-16 18:56 | disposition home or self-care (01) | DRG 312 ==
LOC: 2SW 19:36 → OBSVTOIN 05-15 10:47
PROVIDERS: ADMIT Internal Medicine; ATTEND Family Medicine
PROC: 4A00X4Z Measurement of Central Nervous Electrical Activity, External Approach (ICD-10-PCS; principal; 2024-05-15)
DX: R55 Syncope and collapse (principal); N17.9 Acute kidney failure, unspecified; I13.0 Hypertensive heart and chronic kidney disease with heart failure and stage 1 through stage 4 chronic kidney disease, or unspecified chronic kidney disease; I50.32 Chronic diastolic (congestive) heart failure; N18.4 Chronic kidney disease, stage 4 (severe); R13.10 Dysphagia, unspecified; E11.22 Type 2 diabetes mellitus with diabetic chronic kidney disease; D64.9 Anemia, unspecified; E78.5 Hyperlipidemia, unspecified; W19.XXXA Unspecified fall, initial encounter; G25.81 Restless legs syndrome; Z88.5 Allergy status to narcotic agent; Z79.899 Other long term (current) drug therapy; Z79.84 Long term (current) use of oral hypoglycemic drugs; Y93.89 Activity, other specified; Y92.89 Other specified places as the place of occurrence of the external cause
CPT/HCPCS: 36415; 36416; 70551; 80048; 80053; 83036; 83735; 83880; 85025; 93306; 95700; 95711; 95819; 96374; 96376; G0378; J0360; J1815; J7030

== ENCOUNTER 2024-07-26 12:34 | Outpatient (CLI) | payer MEDICARE, OTHER | END 2024-07-26 12:35 | disposition home or self-care (01) | LOC: ULT 12:34 | PROVIDERS: ATTEND Family Medicine | DX: R10.32 Left lower quadrant pain (principal); N83.292 Other ovarian cyst, left side | CPT/HCPCS: 76856 ==

== ENCOUNTER 2024-09-08 10:34 | Emergency (ER) | payer MEDICARE, OTHER ==
[2024-09-08 11:13] LABS: #Basophils Less than 0.03 10x3/uL (0.0-0.2); %Basophils 0.2 % (0.0-1.0); %Eosinophils 0.8 % (0.0-10.0); %Lymphocytes 16.9 % (21.0-51.0); %Monocytes 9.4 % (0.0-10.0); %Neutrophils 72.1 % (42.0-75.0); Hematocrit 31.7 % (36.0-47.0); Mean Corpuscular HGB CONC 31.5 g/dL (32.0-36.0); Mean Corpuscular Hemoglobin 28.2 pg (27.0-31.0); Mean Corpuscular Volume 89.3 fL (78.0-98.0); Mean Platelet Volume 10.1 fL (7.4-10.4); Platelet Count 221 10x3/uL (130-400); RBC Distribution Width 16.6 % (11.5-14.5); Red Blood Cell (RBC) Count 3.55 mill/uL (4.20-5.40)
[2024-09-08 11:28] LABS: ALT (SGPT) 9 U/L (8-55); AST (SGOT) 14 U/L (5-34); Alkaline Phosphatase 119 U/L (40-110); Anion Gap 15 mmol/L (10-20); BUN (Urea Nitrogen) 39 mg/dL (9.8-20.1); Bilirubin, Total 0.4 mg/dL (0.2-1.2); CK (CPK) 98 U/L (29-168); Calc. Creatinine Clearance 0 mL/min (70-130); Calcium 9.1 mg/dL (7.8-10.44); Carbon Dioxide 22 mmol/L (23-31); Chloride 109 mmol/L (98-107); Estimated GFR 36; Globulin 3.5 g/dL (2.4-3.5); Glucose 200 mg/dL (83-110); Potassium 3.6 mmol/L (3.5-5.1); Protein, Total 6.5 g/dL (5.8-8.1); Sodium 142 mmol/L (136-145)
[2024-09-08 11:42] LABS: Bacteria/HPF None Seen HPF (None Seen); Bilirubin Negative (Negative); Blood, Urine Negative (Negative); CAUTI Indications for Culture Pelvic or flank pain; Clarity Clear (Clear); Glucose, Urine (Dipstick) 200 mg/dL (Negative); Ketone, Urine Negative (Negative); Leukocyte Negative Leu/uL (Negative); Nitrite Negative (Negative); Protein, Urine (Dipstick) 600 mg/dL (Neg-Trace); RBC/HPF 0-3 HPF (0-3); Specific Gravity, Urine 1.023 (1.002-1.036); Squamous Epithelial 0-3 HPF (0-3); Urobilinogen Normal mg/dL (Less than 2); WBC/HPF 0-3 HPF (0-3)
[2024-09-08 11:53] LABS: Urine Culture Reflex No No
== END 2024-09-08 22:27 ==
LOC: ERS 10:34
DX: S32.10XA Unspecified fracture of sacrum, initial encounter for closed fracture (principal); N17.9 Acute kidney failure, unspecified; R53.1 Weakness; I12.9 Hypertensive chronic kidney disease with stage 1 through stage 4 chronic kidney disease, or unspecified chronic kidney disease; E11.22 Type 2 diabetes mellitus with diabetic chronic kidney disease; N18.2 Chronic kidney disease, stage 2 (mild); W19.XXXA Unspecified fall, initial encounter
CPT/HCPCS: 36415; 36416; 51702; 70450; 72131; 80053; 81001; 82550; 83605; 83880; 85025; 87428; 93005

== ENCOUNTER 2025-05-23 14:57 | Outpatient (CLI) | payer MEDICARE | END 2025-05-23 14:58 | disposition home or self-care (01) | LOC: BICRAD 14:57 | PROVIDERS: ATTEND Family Medicine | DX: S70.01XA Contusion of right hip, initial encounter (principal); M79.651 Pain in right thigh; M25.451 Effusion, right hip; M81.0 Age-related osteoporosis without current pathological fracture | CPT/HCPCS: 72190 ==

== ENCOUNTER 2025-08-01 12:32 | Day surgery (SDC) | payer MEDICARE, OTHER ==
[2025-07-31 10:27] VITALS: BMI 31.8
[2025-08-01] MEDS ORDERED: hydrALAZINE 20 MG/ML VIAL ONE (13:55)
[2025-08-01] MEDS ORDERED: PROPOFOL 200 MG/20 ML VIAL ONE (14:31)
[2025-08-01] MEDS ORDERED: Lidocaine 1% PF 5 ML VIAL ONE (14:31)
== END 2025-08-01 15:50 | disposition home or self-care (01) ==
LOC: SDC 12:32
PROVIDERS: ATTEND Internal Medicine Gastroenterology
PROC: 0D758ZZ Dilation of Esophagus, Via Natural or Artificial Opening Endoscopic (ICD-10-PCS; principal; 2025-08-01)
DX: K31.7 Polyp of stomach and duodenum (principal); D64.9 Anemia, unspecified; Z88.5 Allergy status to narcotic agent
CPT/HCPCS: 43450; 82962; J0360; J2704; 36416

== ENCOUNTER 2025-08-18 03:20 | Emergency (ER) | payer MEDICARE, OTHER ==
[2025-08-18] MEDS ORDERED: Ondansetron PF 4 MG/2 ML Vial ONE (03:55)
[2025-08-18 04:06] LABS: #Basophils 0.03 10x3/uL (0.0-0.2); #Eosinophils 0.09 10x3/uL (0.0-0.7); #Monocytes 0.90 10x3/uL (0.11-0.59); #Neutrophils 5.26 10x3/uL (1.40-6.50); %Basophils 0.4 % (0.0-1.0); %Eosinophils 1.1 % (0.0-10.0); %Lymphocytes 22.3 % (21.0-51.0); %Monocytes 11.0 % (0.0-10.0); %Neutrophils 64.6 % (42.0-75.0); Hematocrit 32.0 % (36.0-47.0); Hemoglobin 10.0 g/dL (12.0-16.0); Mean Corpuscular Hemoglobin 27.4 pg (27.0-31.0); Mean Corpuscular Volume 87.7 fL (78.0-98.0); Platelet Count 206 10x3/uL (130-400); Red Blood Cell (RBC) Count 3.65 mill/uL (4.20-5.40); White Blood Cell (WBC) Count 8.15 10x3/uL (4.8-10.8)
[2025-08-18 04:26] LABS: Lipase 61 U/L (8-78)
[2025-08-18 04:28] LABS: Acetaminophen Less than 10 mcg/mL (Less than 10); Salicylate Less than 8.0 mg/dL (Less than 8.0)
[2025-08-18 04:29] LABS: ALT (SGPT) 13 U/L (Less than 34); AST (SGOT) 19 U/L (11-34); Albumin 3.5 g/dL (3.1-4.5); Alkaline Phosphatase 116 U/L (40-110); Anion Gap 17 mmol/L (10-20); BUN (Urea Nitrogen) 56 mg/dL (9.8-20.1); Bilirubin, Total 0.3 mg/dL (0.3-1.2); CK (CPK) 116 U/L (29-168); Calc. Creatinine Clearance 0 mL/min (70-130); Calcium 8.6 mg/dL (7.8-10.44); Carbon Dioxide 24 mmol/L (23-31); Chloride 107 mmol/L (98-107); Globulin 3.2 g/dL (2.4-3.5); Glucose 161 mg/dL (83-110); Potassium 3.5 mmol/L (3.5-5.1); Sodium 144 mmol/L (136-145)
[2025-08-18 06:17] LABS: Bacteria/HPF None Seen HPF (None Seen); CAUTI Indications for Culture Alt mental st,lethar; Glucose, Urine (Dipstick) 30 mg/dL (Negative); Leukocyte Negative Leu/uL (Negative); Protein, Urine (Dipstick) 200 mg/dL (Neg-Trace); RBC/HPF 0-3 HPF (0-3); Specific Gravity, Urine 1.013 (1.002-1.036); WBC/HPF 0-3 HPF (0-3)
[2025-08-18] MEDS ORDERED: Proparacaine 0.5% Opth 15 ML BOT ONE (06:18)
[2025-08-18 06:20] LABS: Urine Culture Reflex No No
[2025-08-18 06:24] LABS: Cocaine Metabolite Screen Negative (Negative); THC/Cannabinoid Screen Negative (Negative); Tricyclic Screen Negative (Negative)
[2025-08-18] MEDS ORDERED: hydrALAZINE 20 MG/ML VIAL ONE (08:28)
== END 2025-08-18 08:55 | disposition short-term general hospital (02) ==
LOC: ERS 03:20
DX: R55 Syncope and collapse (principal); S02.31XA Fracture of orbital floor, right side, initial encounter for closed fracture; J90 Pleural effusion, not elsewhere classified; I16.0 Hypertensive urgency; E11.22 Type 2 diabetes mellitus with diabetic chronic kidney disease; I12.9 Hypertensive chronic kidney disease with stage 1 through stage 4 chronic kidney disease, or unspecified chronic kidney disease; N18.2 Chronic kidney disease, stage 2 (mild); I25.2 Old myocardial infarction; N17.9 Acute kidney failure, unspecified; Z86.73 Personal history of transient ischemic attack (TIA), and cerebral infarction without residual deficits; W18.30XA Fall on same level, unspecified, initial encounter
CPT/HCPCS: 70450; 70486; 71045; 71250; 72125; 80053; 80306; 80307; 81001; 82140; 82550; 83605; 83690; 84484; 85025; 93005; 96374; 96375; 96376; 99285; G0390; J0360; J2405; J2272

== ENCOUNTER 2025-09-18 11:24 | Inpatient (IN) | payer MEDICARE, OTHER ==
[2025-09-18 12:08] LABS: #Basophils Less than 0.03 10x3/uL (0.0-0.2); #Eosinophils 0.07 10x3/uL (0.0-0.7); #Monocytes 0.61 10x3/uL (0.11-0.59); #Neutrophils 4.90 10x3/uL (1.40-6.50); %Basophils 0.3 % (0.0-1.0); %Eosinophils 1.1 % (0.0-10.0); %Lymphocytes 12.7 % (21.0-51.0); %Monocytes 9.4 % (0.0-10.0); %Neutrophils 75.7 % (42.0-75.0); Hematocrit 24.6 % (36.0-47.0); Hemoglobin 7.3 g/dL (12.0-16.0); Mean Corpuscular Hemoglobin 27.0 pg (27.0-31.0); Mean Corpuscular Volume 91.1 fL (78.0-98.0); Platelet Count 147 10x3/uL (130-400); Red Blood Cell (RBC) Count 2.70 mill/uL (4.20-5.40); White Blood Cell (WBC) Count 6.47 10x3/uL (4.8-10.8)
[2025-09-18 12:12] LABS: Actual Bicarbonate (HCO3v) 24.8 mEq/L (22-28); Base Excess -1.4 mEq/L (-2.0 to +3.0); Calcium, Ionized (venous) 1.03 mmol/L (1.16-1.32); Chloride (VBG) 107 mmol/L (98-106); Hematocrit-VBG 25 % (36.0-47.0); Hemoglobin (Hb) 8.6 g/dL (11.7-16.1); Potassium (VBG) 4.19 mmol/L (3.70-5.30); Sodium 142 mmol/L (133-146)
[2025-09-18 12:30] LABS: ALT (SGPT) 18 U/L (Less than 34); AST (SGOT) 16 U/L (11-34); Albumin 3.0 g/dL (3.1-4.5); Alkaline Phosphatase 111 U/L (40-110); Anion Gap 15 mmol/L (10-20); BUN (Urea Nitrogen) 71 mg/dL (9.8-20.1); Bilirubin, Total 0.3 mg/dL (0.3-1.2); Calc. Creatinine Clearance 0 mL/min (70-130); Calcium 7.9 mg/dL (7.8-10.44); Carbon Dioxide 26 mmol/L (23-31); Chloride 109 mmol/L (98-107); Globulin 2.7 g/dL (2.4-3.5); Glucose 72 mg/dL (83-110); Potassium 4.4 mmol/L (3.5-5.1); Sodium 146 mmol/L (136-145)
[2025-09-18] MEDS ORDERED: Furosemide 40 MG (4 mL) VIAL ONE (14:12)
[2025-09-18] MEDS ORDERED: Ondansetron PF 4 MG/2 ML Vial IVP PRN (15:30)
[2025-09-18] MEDS ORDERED: Senokot S 8.6-50 MG TAB PO PRN (15:30)
[2025-09-18] MEDS ORDERED: Dextrose 50% Abboject 50 ML SYRINGE SLOW IVP PRN (15:39)
[2025-09-18] MEDS ORDERED: Glucagon 1 MG/ML KIT IM PRN (15:39)
[2025-09-18 16:19] LABS: Hematocrit 25.2 % (36.0-47.0); Hemoglobin 7.7 g/dL (12.0-16.0)
[2025-09-18 16:40] VITALS: BMI 32.9
[2025-09-18] MEDS: Propranolol 60 MG TAB PO SCH (17:38)
[2025-09-18] MEDS: Acetaminophen 325 MG TAB PO PRN (18:30)
[2025-09-18] MEDS: NIFEdipine XL 60 MG ER.TAB PO SCH (19:42)
[2025-09-18] MEDS: Heparin 5,000 UNITS/ML VIAL SC SCH (20:43)
[2025-09-19 04:41] LABS: #Basophils 0.03 10x3/uL (0.0-0.2); #Eosinophils 0.12 10x3/uL (0.0-0.7); #Monocytes 0.74 10x3/uL (0.11-0.59); #Neutrophils 6.15 10x3/uL (1.40-6.50); %Basophils 0.4 % (0.0-1.0); %Eosinophils 1.5 % (0.0-10.0); %Lymphocytes 13.3 % (21.0-51.0); %Monocytes 9.0 % (0.0-10.0); %Neutrophils 74.7 % (42.0-75.0); Hematocrit 25.0 % (36.0-47.0); Hemoglobin 7.4 g/dL (12.0-16.0); Mean Corpuscular Hemoglobin 26.8 pg (27.0-31.0); Mean Corpuscular Volume 90.6 fL (78.0-98.0); Platelet Count 173 10x3/uL (130-400); Red Blood Cell (RBC) Count 2.76 mill/uL (4.20-5.40); White Blood Cell (WBC) Count 8.22 10x3/uL (4.8-10.8)
[2025-09-19 04:51] LABS: Anion Gap 15 mmol/L (10-20); BUN (Urea Nitrogen) 72 mg/dL (9.8-20.1); Calc. Creatinine Clearance 19 mL/min (70-130); Calcium 8.1 mg/dL (7.8-10.44); Carbon Dioxide 24 mmol/L (23-31); Chloride 108 mmol/L (98-107); Glucose 106 mg/dL (83-110); Potassium 4.2 mmol/L (3.5-5.1); Sodium 143 mmol/L (136-145)
[2025-09-19] MEDS: Furosemide 40 MG (4 mL) VIAL SLOW IVP SCH (05:07)
[2025-09-19] MEDS: glipiZIDE 10 MG TAB PO SCH (16:05)
[2025-09-19] MEDS: Carvedilol 6.25 MG TAB PO SCH (19:40)
[2025-09-20] MEDS: Melatonin 3 MG TAB PO PRN (03:29)
[2025-09-20 04:23] LABS: #Basophils Less than 0.03 10x3/uL (0.0-0.2); #Eosinophils 0.10 10x3/uL (0.0-0.7); #Monocytes 0.64 10x3/uL (0.11-0.59); #Neutrophils 4.31 10x3/uL (1.40-6.50); %Basophils 0.3 % (0.0-1.0); %Eosinophils 1.6 % (0.0-10.0); %Lymphocytes 16.3 % (21.0-51.0); %Monocytes 10.5 % (0.0-10.0); %Neutrophils 70.5 % (42.0-75.0); Hematocrit 23.6 % (36.0-47.0); Hemoglobin 7.1 g/dL (12.0-16.0); Mean Corpuscular Hemoglobin 27.0 pg (27.0-31.0); Mean Corpuscular Volume 89.7 fL (78.0-98.0); Platelet Count 150 10x3/uL (130-400); Red Blood Cell (RBC) Count 2.63 mill/uL (4.20-5.40); White Blood Cell (WBC) Count 6.12 10x3/uL (4.8-10.8)
[2025-09-20 04:43] LABS: Anion Gap 18 mmol/L (10-20); BUN (Urea Nitrogen) 73 mg/dL (9.8-20.1); Calc. Creatinine Clearance 19 mL/min (70-130); Calcium 8.0 mg/dL (7.8-10.44); Carbon Dioxide 25 mmol/L (23-31); Chloride 107 mmol/L (98-107); Glucose 134 mg/dL (83-110); Potassium 3.6 mmol/L (3.5-5.1); Sodium 146 mmol/L (136-145)
[2025-09-20] MEDS ORDERED: Non-Formulary Item 1 EACH (Losartan Potassium [Losartan Potassium] 50 MG Tablet) PO SCH (09:00)
[2025-09-20] MEDS: Sertraline 100 MG TAB PO SCH (09:55)
[2025-09-20] MEDS: Gabapentin 300 MG CAP PO SCH (09:55)
[2025-09-20 11:21] LABS: Iron 27 ug/dL (50-170); Iron Binding Capacity, Total 196 mcg/dL (265-497)
[2025-09-20 11:50] LABS: Ferritin 160.58 ng/mL (10-291); Vitamin B12 605.0 pg/mL (211-911)
[2025-09-20] MEDS: Sodium Ferric Gluconate 250 MG in Sodium Chloride 0.9% 250 ML 250 ML IVPB SCH (18:41)
[2025-09-21 04:21] LABS: #Basophils Less than 0.03 10x3/uL (0.0-0.2); #Eosinophils 0.08 10x3/uL (0.0-0.7); #Monocytes 0.66 10x3/uL (0.11-0.59); #Neutrophils 4.35 10x3/uL (1.40-6.50); %Basophils 0.3 % (0.0-1.0); %Eosinophils 1.3 % (0.0-10.0); %Lymphocytes 17.6 % (21.0-51.0); %Monocytes 10.6 % (0.0-10.0); %Neutrophils 69.6 % (42.0-75.0); Hematocrit 27.1 % (36.0-47.0); Hemoglobin 8.3 g/dL (12.0-16.0); Mean Corpuscular Hemoglobin 27.0 pg (27.0-31.0); Mean Corpuscular Volume 88.3 fL (78.0-98.0); Platelet Count 156 10x3/uL (130-400); Red Blood Cell (RBC) Count 3.07 mill/uL (4.20-5.40); White Blood Cell (WBC) Count 6.25 10x3/uL (4.8-10.8)
[2025-09-21 04:42] LABS: Anion Gap 17 mmol/L (10-20); BUN (Urea Nitrogen) 71 mg/dL (9.8-20.1); Calc. Creatinine Clearance 19 mL/min (70-130); Calcium 8.2 mg/dL (7.8-10.44); Carbon Dioxide 26 mmol/L (23-31); Chloride 104 mmol/L (98-107); Glucose 197 mg/dL (83-110); Potassium 3.9 mmol/L (3.5-5.1); Sodium 143 mmol/L (136-145)
[2025-09-22 05:26] LABS: #Basophils 0.03 10x3/uL (0.0-0.2); #Eosinophils 0.10 10x3/uL (0.0-0.7); #Monocytes 0.66 10x3/uL (0.11-0.59); #Neutrophils 5.17 10x3/uL (1.40-6.50); %Basophils 0.4 % (0.0-1.0); %Eosinophils 1.4 % (0.0-10.0); %Lymphocytes 15.0 % (21.0-51.0); %Monocytes 9.3 % (0.0-10.0); %Neutrophils 73.2 % (42.0-75.0); Hematocrit 28.3 % (36.0-47.0); Hemoglobin 8.7 g/dL (12.0-16.0); Mean Corpuscular Hemoglobin 26.9 pg (27.0-31.0); Mean Corpuscular Volume 87.3 fL (78.0-98.0); Platelet Count 173 10x3/uL (130-400); Red Blood Cell (RBC) Count 3.24 mill/uL (4.20-5.40); White Blood Cell (WBC) Count 7.07 10x3/uL (4.8-10.8)
[2025-09-22 05:37] LABS: Anion Gap 19 mmol/L (10-20); BUN (Urea Nitrogen) 73 mg/dL (9.8-20.1); Calc. Creatinine Clearance 20 mL/min (70-130); Calcium 8.8 mg/dL (7.8-10.44); Carbon Dioxide 24 mmol/L (23-31); Chloride 105 mmol/L (98-107); Glucose 180 mg/dL (83-110); Potassium 4.3 mmol/L (3.5-5.1); Sodium 144 mmol/L (136-145)
[2025-09-22] MEDS: Furosemide 40 MG (4 mL) VIAL SLOW IVP SCH (15:52)
[2025-09-22] MEDS: Melatonin 3 MG TAB PO PRN (20:04)
[2025-09-23 09:03] LABS: #Basophils Less than 0.03 10x3/uL (0.0-0.2); #Eosinophils 0.06 10x3/uL (0.0-0.7); #Monocytes 0.44 10x3/uL (0.11-0.59); #Neutrophils 3.94 10x3/uL (1.40-6.50); %Basophils 0.4 % (0.0-1.0); %Eosinophils 1.1 % (0.0-10.0); %Lymphocytes 16.5 % (21.0-51.0); %Monocytes 8.1 % (0.0-10.0); %Neutrophils 73.0 % (42.0-75.0); Hematocrit 26.2 % (36.0-47.0); Hemoglobin 8.0 g/dL (12.0-16.0); Mean Corpuscular Hemoglobin 27.1 pg (27.0-31.0); Mean Corpuscular Volume 88.8 fL (78.0-98.0); Platelet Count 145 10x3/uL (130-400); Red Blood Cell (RBC) Count 2.95 mill/uL (4.20-5.40); White Blood Cell (WBC) Count 5.40 10x3/uL (4.8-10.8)
[2025-09-23 09:23] LABS: Anion Gap 19 mmol/L (10-20); BUN (Urea Nitrogen) 71 mg/dL (9.8-20.1); Calc. Creatinine Clearance 18 mL/min (70-130); Calcium 8.3 mg/dL (7.8-10.44); Carbon Dioxide 26 mmol/L (23-31); Chloride 104 mmol/L (98-107); Glucose 239 mg/dL (83-110); Potassium 4.2 mmol/L (3.5-5.1); Sodium 145 mmol/L (136-145)
[2025-09-24 05:35] LABS: #Basophils Less than 0.03 10x3/uL (0.0-0.2); #Eosinophils 0.13 10x3/uL (0.0-0.7); #Monocytes 0.64 10x3/uL (0.11-0.59); #Neutrophils 4.12 10x3/uL (1.40-6.50); %Basophils 0.3 % (0.0-1.0); %Eosinophils 2.1 % (0.0-10.0); %Lymphocytes 19.4 % (21.0-51.0); %Monocytes 10.4 % (0.0-10.0); %Neutrophils 66.7 % (42.0-75.0); Hematocrit 28.9 % (36.0-47.0); Hemoglobin 8.9 g/dL (12.0-16.0); Mean Corpuscular Hemoglobin 27.4 pg (27.0-31.0); Mean Corpuscular Volume 88.9 fL (78.0-98.0); Platelet Count 163 10x3/uL (130-400); Red Blood Cell (RBC) Count 3.25 mill/uL (4.20-5.40); White Blood Cell (WBC) Count 6.18 10x3/uL (4.8-10.8)
[2025-09-24 05:51] LABS: Anion Gap 15 mmol/L (10-20); BUN (Urea Nitrogen) 74 mg/dL (9.8-20.1); Calc. Creatinine Clearance 20 mL/min (70-130); Calcium 8.2 mg/dL (7.8-10.44); Carbon Dioxide 26 mmol/L (23-31); Chloride 103 mmol/L (98-107); Glucose 167 mg/dL (83-110); Potassium 4.2 mmol/L (3.5-5.1); Sodium 140 mmol/L (136-145)
[2025-09-24] MEDS ORDERED: Furosemide 20 MG TAB PO SCH (07:45)
[2025-09-24] MEDS: Furosemide 40 MG TAB PO SCH (08:36)
[2025-09-25 05:36] LABS: #Basophils Less than 0.03 10x3/uL (0.0-0.2); #Eosinophils 0.09 10x3/uL (0.0-0.7); #Monocytes 0.65 10x3/uL (0.11-0.59); #Neutrophils 5.67 10x3/uL (1.40-6.50); %Basophils 0.3 % (0.0-1.0); %Eosinophils 1.2 % (0.0-10.0); %Lymphocytes 14.0 % (21.0-51.0); %Monocytes 8.6 % (0.0-10.0); %Neutrophils 74.7 % (42.0-75.0); Hematocrit 28.3 % (36.0-47.0); Hemoglobin 8.7 g/dL (12.0-16.0); Mean Corpuscular Hemoglobin 27.1 pg (27.0-31.0); Mean Corpuscular Volume 88.2 fL (78.0-98.0); Platelet Count 163 10x3/uL (130-400); Red Blood Cell (RBC) Count 3.21 mill/uL (4.20-5.40); White Blood Cell (WBC) Count 7.58 10x3/uL (4.8-10.8)
[2025-09-25] MEDS: Furosemide 40 MG TAB PO SCH (06:07)
[2025-09-25 06:11] LABS: Anion Gap 16 mmol/L (10-20); BUN (Urea Nitrogen) 68 mg/dL (9.8-20.1); Calc. Creatinine Clearance 20 mL/min (70-130); Calcium 8.4 mg/dL (7.8-10.44); Carbon Dioxide 26 mmol/L (23-31); Chloride 103 mmol/L (98-107); Glucose 176 mg/dL (83-110); Potassium 4.4 mmol/L (3.5-5.1); Sodium 141 mmol/L (136-145)
[2025-09-25 07:52] VITALS: TEMP 97.6
[2025-09-25] MEDS: NIFEdipine XL 60 MG ER.TAB PO SCH (09:35)
[2025-09-25 10:58] VITALS: BP 155/68
== END 2025-09-25 16:22 | DRG 291 ==
LOC: ERS 11:24 → 2NO 14:45 → SURG B 09-23 23:33
PROVIDERS: ADMIT Internal Medicine; ATTEND Internal Medicine
DX: I13.0 Hypertensive heart and chronic kidney disease with heart failure and stage 1 through stage 4 chronic kidney disease, or unspecified chronic kidney disease (principal); I50.33 Acute on chronic diastolic (congestive) heart failure; J96.01 Acute respiratory failure with hypoxia; N18.4 Chronic kidney disease, stage 4 (severe); E87.0 Hyperosmolality and hypernatremia; N17.9 Acute kidney failure, unspecified; G25.81 Restless legs syndrome; E11.22 Type 2 diabetes mellitus with diabetic chronic kidney disease; Z79.899 Other long term (current) drug therapy; E78.5 Hyperlipidemia, unspecified; D50.9 Iron deficiency anemia, unspecified; I16.0 Hypertensive urgency
CPT/HCPCS: 36415; 36416; 36430; 71045; 76705; 76770; 80048; 80053; 82607; 82728; 82805; 83540; 83550; 83605; 83880; 84484; 85025; 85046; 86850; 86900; 86901; 87040; 93005; 93306; 93976; 96374; J1644; J1815; J1940; J2916; J7050; P9016; Q0162